=== PATIENT | male | born 1995 | race Caucasian/White ===

== ENCOUNTER 2022-08-01 18:52 | Emergency (ER) | payer OTHER, SELFPAY ==
[2022-08-01 18:59] VITALS: BP 120/78; PULSE 72; RESP 18; TEMP 36.7; O2SAT 97; BMI 32.7
--- NOTE | 2022-08-01 19:28 | ED.GENADULT ---
HPI - General Adult General Date Seen: 08/01/22 Chief complaint: Skin/Abscess/Foreign Body Stated complaint: L hand/thumb infection Time Seen by Provider: 08/01/22 18:54 Source: patient History of Present Illness HPI narrative: Patient is a 27-year-old male who presents for evaluation of a couple of problems on his left hand. About 5 days ago, he says he was at work and a drill with a fresh bit on it slipped and went into the webspace between his thumb and 1st finger on his left hand. He did not think much of it but over the past couple of days it has become increasingly painful and when the scab tore off today there was what he describes as ?boogers on it. There is increasing redness noted as well. He has not had significant swelling, denies any systemic complaints. He is certain that the drill bit was intact and has no concerns about retained foreign body. He also says that he got a tattoo on his left hand a few days ago. He has multiple tattoos and has never had any problems, however in this case, his skin has rejected the ink and he has some redness and irritation which perfectly mirrors the area where the ink was placed. He has been using antibiotic ointment on it multiple times a day since the tattoo was placed. He believes his tetanus is up-to-date. General health is good. Allergies to Cefzil. Related Data Allergies Allergy/AdvReac Type Severity Reaction Status Date / Time cefprozil [From Cefzil] Allergy Verified 08/01/22 18:59 Review of Systems Status of ROS: Reports: 10 or more systems reviewed and unremarkable except as noted in History and below PFSH PFS Social History Smoking Status: Former smoker What tobacco products do you use: cigarettes Smoking packs per day: 0 Smoking cigarettes per day: 0.0 Years smoked: 2 Smoking pack-years: 0.00 Smoking quit date/years: <= 15 years ago Do you use any of these nicotine containing products: E-Cigarettes and Vaping Products Second hand tobacco smoke exposure: No How often do you have a drink containing alcohol: 2-4 times a month How many standard drinks containing alcohol do you have on a typical day: 1 or 2 How often do you have six or more drinks on one occasion: Less than monthly AUDIT-C Alcohol total score: 3 Non-prescribed substance use: denies use service: No Exam Narrative: Exam Narrative: In general, an alert, nontoxic male. Head: Normocephalic, atraumatic. Neck: Supple. Extremities: Examination of the left hand shows a puncture wound in the 1st webspace. There is mild surrounding erythema, no active purulence although the eschar is yellowish in color. No fluctuance, some tenderness to palpation over the webspace. The tattoo in question is inflamed, the inflammation perfectly mirrors the shape of the tattoo. No surrounding inflammation or erythema. Neurologic: He is alert, conversant, gait normal. Affect: Normal. Skin: Warm and dry. Otherwise well perfused intact. Const: Vital Signs, click to edit/add: Vital Signs - 24 hr 08/01/22 18:59 Temperature 98.1 F Pulse Rate [Pulse Oximeter] 72 Respiratory Rate 18 Blood Pressure [Le ft Upper Arm] 120/78 Pulse Oximetry 97 Oxygen Delivery Me thod Room Air Documenting provider has reviewed patient's vital signs: yes Course Course Hospital Course: He does appear to be developing a little bit of mild infection from that puncture wound and I think antibiotics are reasonable. I do not think there is any indication for IV antibiotics at this time. With regard to that had 2, it looks more to me like this is a contact dermatitis than likely infection. I did recommend he discontinue the topical antibiotic and instead use something like Vaseline, use topical steroid, and then of course he will be on the oral antibiotic and that will cover there is any component of infection to this. If any of this worsens, if he has significant worsening redness, swelling, pain or new symptoms such as fever he should return for re-evaluation. Did discuss there may be slight worsening over the next 24 hours as the antibiotic kicks in. Vital Signs Vital signs: Initial Vital Signs Temperature 98.1 F 08/01/22 18:59 Temperature Source Temporal Artery Scan 08/01/22 18:59 Pulse Rate 72 08/01/22 18:59 Pulse Rhythm 08/01/22 18:59 Respiratory Rate 18 08/01/22 18:59 Blood Pressure 120/78 08/01/22 18:59 Blood Pressure Mean 92 08/01/22 18:59 Blood Pressure Position Sitting 08/01/22 18:59 Pulse Oximetry 97 08/01/22 18:59 Oxygen Delivery Method 08/01/22 18:59 Vital Signs Temperature 98.1 F 08/01/22 18:59 Pulse Rate 72 08/01/22 18:59 Respiratory Rate 18 08/01/22 18:59 Blood Pressure 120/78 08/01/22 18:59 Pulse Oximetry 97 08/01/22 18:59 Oxygen Delivery Method 08/01/22 18:59 Temperature 98.1 F 08/01/22 18:59 Pulse Rate 72 08/01/22 18:59 Respiratory Rate 18 08/01/22 18:59 Blood Pressure 120/78 08/01/22 18:59 Pulse Oximetry 97 08/01/22 18:59 Oxygen Delivery Method 08/01/22 18:59 Discharge Plan Discharge Clinical Impression: Cellulitis, Contact dermatitis Patient Disposition: Home, Self-Care Condition: Stable Instructions: Contact Dermatitis (DC), Cellulitis (ED) Additional Instructions: For the puncture wound, antibiotic as prescribed. For your tattoo, I would recommend discontinuing the topical antibiotic and using plain ointment such as Vaseline instead. You can use a topical steroid such as hydrocortisone. If you have significantly worsening redness, swelling, pain or new symptoms such as fever, return for re-evaluation. Stand Alone Forms: [facility] Info Instructions
[2022-08-01 19:34] VITALS: PULSE 76; RESP 16; TEMP 36.7; O2SAT 98
== END 2022-08-01 19:49 | disposition home or self-care (01) ==
LOC: ED 19:47
PROVIDERS: Emergency Provider Emergency Medicine
DX: L03.114 Cellulitis of left upper limb (principal); L24.89 Irritant contact dermatitis due to other agents
CPT/HCPCS: 99283

== ENCOUNTER 2023-05-21 09:31 | Emergency (ER) | payer OTHER, SELFPAY ==
[2023-05-21 10:00] VITALS: BP 146/70; PULSE 85; RESP 18; TEMP 36.7; O2SAT 97; BMI 34.5
--- NOTE | 2023-05-21 10:24 | CRLHL7_ITS ---
For Patients: As a result of the Century Cures Act, medical imaging exams and procedure reports are released immediately into your electronic medical record. You may view this report before your referring provider. If you have questions, please contact your health care provider. INDICATION: Right lower quadrant pain. TECHNIQUE: CT abdomen and pelvis acquired with 100 cc Isovue 370 IV contrast. COMPARISON: None. FINDINGS: Lower chest: Unremarkable. Liver: Moderate/severe fatty steatosis. No suspicious hepatic lesion. Gallbladder and bile ducts: Unremarkable. No stones or inflammation. No biliary dilatation. Pancreas: Unremarkable. No mass or inflammation. Spleen: Mild splenomegaly (15 centimeters AP dimension) Adrenal glands: Unremarkable. No nodules. Kidneys: Unremarkable. No suspicious masses, stones, or hydronephrosis. GI tract: Unremarkable. Normal in caliber. No sign of mass or inflammation. Normal appendix. Few colonic diverticula without evidence of acute diverticulitis. Vasculature: Abdominal aorta is normal in caliber. Mesenteric arteries are patent. Lymph nodes: No lymphadenopathy. Peritoneum/Abdominal Wall: Unremarkable. No sign of mass or infiltration. No free air or significant free fluid. Pelvis: Unremarkable. Bones: Unremarkable for age. IMPRESSION: 1. No acute inflammatory process in the abdomen or pelvis to explain the patient`s symptoms. Normal appendix. 2. Moderate/severe medic steatosis. 3. Mild splenomegaly. 4. Few colonic diverticula. Please note that all CT scans at this facility use dose modulation, iterative reconstruction, and/or weight-based dosing when appropriate to reduce radiation dose to as low as reasonably achievable. Dictated by Romain Wan MD @ 05/21/2023 11:54:14 AM (Electronically Signed)
--- NOTE | 2023-05-21 10:26 | ED_ITS ---
HPI - General Adult General Time Seen by Provider: 10:26 Date Seen: 05/21/23 Chief complaint: Abdominal Pain Stated complaint: Right side abdominal pain Time Seen by Provider: 05/21/23 09:34 Source: patient Mode of arrival: ambulatory Limitations: no limitations History of Present Illness HPI narrative: Patient is a 28 year white male who has a history of seizure disorder, has not had a seizure for last 5 years, is on Lamictal, presents with right lower abdominal pain over the last couple of days. He reports he ate at a friend's graduation and subsequently had some looser stool and belly pain it has progressed and now remained fairly constant in his right lower quadrant. He has had no rigors chills. He last ate yesterday, did not eat today. He has had no chest pain fevers or rigors. No dysuria frequency or hematuria. He reports looser stool, little bit more frequent but not continuous. Presents to ER for evaluation. He recently got out of crutches for a distal tibia fracture. He does architectural sheet metal. Related Data Home Medications Medication Instructions Recorded Confirmed lamotrigine 100 mg tablet 100 mg PO BID 05/21/23 05/21/23 lamotrigine 150 mg tablet 150 mg PO BID 05/21/23 05/21/23 Allergies Allergy/AdvReac Type Severity Reaction Status Date / Time cefprozil [From Cefzil] Allergy Verified 05/21/23 10:31 Review of Systems Status of ROS: Reports: 6 or more systems reviewed and unremarkable except as noted in History and below PFSH PFSH Social History Smoking Status: Former smoker What tobacco products do you use: cigarettes Smoking packs per day: 0 Smoking cigarettes per day: 0.0 Years smoked: 2 Smoking pack-years: 0.00 Smoking quit date/years: <= 15 years ago Do you use any of these nicotine containing products: E-Cigarettes and Vaping Products Second hand tobacco smoke exposure: No How often do you have a drink containing alcohol: 2-4 times a month How many standard drinks containing alcohol do you have on a typical day: 1 or 2 How often do you have six or more drinks on one occasion: Less than monthly AUDIT-C Alcohol total score: 3 Non-prescribed substance use: denies use service: No Exam Narrative: Exam Narrative: Objective: Vital signs unremarkable afebrile In general no apparent distress HEENT is unremarkable Pulses regular Chest clear Heart rhythm regular heart murmur Abdomen mild tenderness right lower quadrant, no obvious rebound or peritonitis. He does have some mild voluntary guarding. denies symptoms, no testicular pain Extremities are no edema, neurologic nonfocal Const: Vital Signs, click to edit/add: Vital Signs - 24 hr 05/21/23 10:00 Temperature 98.1 F Pulse Rate [Right Pulse Oximeter] 85 Respiratory Rate 18 Blood Pressure [Ri ght Upper Arm] 146/70 H Pulse Oximetry 97 Oxygen Delivery Me thod Room Air Course Vital Signs Vital signs: Initial Vital Signs Temperature 98.1 F 05/21/23 10:00 Temperature Source Temporal Artery Scan 05/21/23 10:00 Pulse Rate 85 05/21/23 10:00 Respiratory Rate 18 05/21/23 10:00 Blood Pressure 146/70 H 05/21/23 10:00 Blood Pressure Mean 95 05/21/23 10:00 Blood Pressure Position Sitting 05/21/23 10:00 Pulse Oximetry 97 05/21/23 10:00 Oxygen Delivery Method Room Air 05/21/23 10:00 Vital Signs Temperature 98.1 F 05/21/23 10:00 Pulse Rate 85 05/21/23 10:00 Respiratory Rate 18 05/21/23 10:00 Blood Pressure 146/70 H 05/21/23 10:00 Pulse Oximetry 97 05/21/23 10:00 Oxygen Delivery Method Room Air 05/21/23 10:00 Temperature 98.1 F 05/21/23 10:00 Pulse Rate 85 05/21/23 10:00 Respiratory Rate 18 05/21/23 10:00 Blood Pressure 146/70 H 05/21/23 10:00 Pulse Oximetry 97 05/21/23 10:00 Oxygen Delivery Method Room Air 05/21/23 10:00 Medical Decision Making MDM Narrative Medical decision making narrative: Patient is a 28 year white male with looser stool, right lower quadrant pain for the last several days. I think at this point we need to rule out appendicitis, intra-abdominal infection, colitis, will do CT scan with IV contrast of the abdomen pelvis, lab studies, IV fluid. Disposition pending findings above. He was comfortable plan Addendum: Patient's CT scan looks unremarkable other than hepatic steatosis, there is no evidence of an acute inflammatory change, normal appendix. At this point the patient's labs look reassuring as well would recommend observation, light diet, light activity, fluids, follow-up with primary care in 2-3 days, return to ED sooner problems concerns worsening thanks Lab Data Labs: Lab Results 05/21/23 05/21/23 Range/Units 10:55 11:45 WBC 5.60 (4.50-11.00) K/uL RBC 5.15 (4.30-5.90) m/uL Hgb 15.3 (13.5-17.5) gm/dL Hct 43.8 (37.0-53.0) % MCV 85 (80-100) fL MCH 30 (26-34) pg MCHC 35 (32-36) gm/dL RDW Coeff of Brayden 11.8 (11.5-15.5) % Plt Count 207 (140-440) K/uL Neut % (Auto) 65.7 (42.0-72.0) % Lymph % (Auto) 23.2 (20-44) % [place] % (Auto) 7.0 (0.0-11.0) % Eos % (Auto) 3.2 (0.0-7.0) % Baso % (Auto) 0.5 (0.0-3.0) % Neut # (Auto) 3.68 (1.7-7.0) K/uL Lymph # (Auto) 1.30 (0.90-2.90) K/uL [place] # (Auto) 0.40 (0.00-0.90) K/UL Eos # (Auto) 0.18 (0.00-0.50) K/uL Baso # (Auto) 0.03 (0.00-0.30) K/uL Sodium 139 (135-149) mmol/L Potassium 4.3 (3.6-5.1) mmol/L Chloride 104 (96-114) mmol/L Carbon Dioxide 22 (20-32) mmol/L BUN 18 (5-24) mg/dL Creatinine 0.9 (0.5-1.5) mg/dL Estimated Creat Clear 116.29 Estimated GFR 121 ml/min Glucose 92 (60-115) mg/dL Calcium 9.7 (8.4-10.6) mg/dL Total Bilirubin 0.8 (0.1-1.5) mg/dL Direct Bilirubin 0.2 (0.0-0.5) mg/dL AST 57 H (12-35) U/L ALT 106 H (4-50) U/L Alkaline Phosphatase 61 (40-150) U/L C-Reactive Protein 0.8 (0.5-1.0) mg/dL Total Protein 8.0 (6.0-8.3) g/dL Albumin 5.1 H (3.3-5.0) g/dL Urine Color Yellow (Yellow) Urine Appearance Clear (Clear) Urine pH 6.5 (5.0-8.5) Ur Specific [place] 1.010 (1.000-1.030) Urine Protein Negative (Negative) Urine Glucose (UA) Negative (Negative) Urine Ketones Negative (Negative) Urine Blood Negative (Negative) Urine Nitrite Negative (Negative) Urine Bilirubin Negative (Negative) Urine Urobilinogen 0.2 (0.2-1.0) Ur Leukocyte Esterase Negative (Negative) Urine RBC 0-2 (0-2) Urine WBC 0-2 (0-5) Ur Squamous Epith Cells None (None-Few) Urine Bacteria None (None) Discharge Plan Discharge Clinical Impression: Abdominal pain Patient Disposition: Home, Self-Care Condition: Stable Additional Instructions: Light diet, rest, fluids, Tylenol as needed, return to ED as needed for worsening, otherwise follow up with primary care in 2-3 days. Activity Level: Light activity Discharge Diet: Low Fat/Low Cholesterol Prescriptions: No Action lamotrigine 150 mg tablet 150 mg PO BID lamotrigine 100 mg tablet 100 mg PO BID Follow Up/Referrals: Provider,Not a Local [Primary Care Provider] - Stand Alone Forms: [facility] Info Instructions
[2023-05-21] MEDS: 0.9 % SODIUM CHLORIDE 1000 ml 1,000 ML 6000 ML IV (11:00)
[2023-05-21 11:06] LABS: Basophils Absolute Auto 0.03 K/uL (0.00-0.30); Basophils Percent Auto 0.5 % (0.0-3.0); Eosinophils Absolute Auto 0.18 K/uL (0.00-0.50); Eosinophils Percent Auto 3.2 % (0.0-7.0); Hematocrit 43.8 % (37.0-53.0); Hemoglobin* 15.3 gm/dL (13.5-17.5); Immature Granulocytes Abs Auto 0.02 K/uL (0.00-0.30); Immature Granulocytes Pct Auto 0.4 %; Lymphocytes Percent Auto 23.2 % (20-44); Mean Corpuscular HGB Conc 35 gm/dL (32-36); Mean Corpuscular Hemoglobin 30 pg (26-34); Mean Corpuscular Volume 85 fL (80-100); Neutrophils Absolute Auto 3.68 K/uL (1.7-7.0); Neutrophils Percent Auto 65.7 % (42.0-72.0); Platelet Count* 207 K/uL (140-440); RDW Coefficient of Variation % 11.8 % (11.5-15.5); Red Blood Count 5.15 m/uL (4.30-5.90)
[2023-05-21 11:13] LABS: Slide Review Reflex No
[2023-05-21 11:21] LABS: Albumin* 5.1 g/dL (3.3-5.0); Chloride* 104 mmol/L (96-114)
[2023-05-21 11:22] LABS: Potassium* 4.3 mmol/L (3.6-5.1); Sodium* 139 mmol/L (135-149)
[2023-05-21 11:24] LABS: Alkaline Phosphatase* 61 U/L (40-150); Aspartate Amino Transferase* 57 U/L (12-35); Bilirubin Direct* 0.2 mg/dL (0.0-0.5); Bilirubin Total* 0.8 mg/dL (0.1-1.5); Carbon Dioxide* 22 mmol/L (20-32); Creatinine* 0.9 mg/dL (0.5-1.5); Est. Creatinine Clearance* 116.29; Estimated Glomerular Filt Rate 121 ml/min
[2023-05-21 11:25] LABS: Alanine Aminotransferase* 106 U/L (4-50); Blood Urea Nitrogen* 18 mg/dL (5-24); Calcium* 9.7 mg/dL (8.4-10.6); Glucose* 92 mg/dL (60-115)
[2023-05-21 11:27] LABS: C Reactive Protein* 0.8 mg/dL (0.5-1.0)
[2023-05-21 12:01] LABS: Appearance Urine Clear (Clear); Bilirubin Urine Negative (Negative); Blood Urine Negative (Negative); Color Urine Yellow (Yellow); Glucose Urine Negative (Negative); Ketones Urine Negative (Negative); Leukocyte Esterase Urine Negative (Negative); Nitrite Urine Negative (Negative); Protein Urine Negative (Negative); Urobilinogen Urine 0.2 (0.2-1.0); pH Urine 6.5 (5.0-8.5)
[2023-05-21 12:08] LABS: RBC Urine 0-2 (0-2); WBC Urine 0-2 (0-5)
== END 2023-05-21 12:22 | disposition home or self-care (01) ==
PROVIDERS: Emergency Provider Family Medicine
DX: R10.9 Unspecified abdominal pain (principal)
CPT/HCPCS: 36415; 74177; 80048; 80076; 81001; 85025; 86140; 87086; 99284; 99285; J7030; Q9967

== ENCOUNTER 2023-12-31 18:07 | Emergency (ER) | payer OTHER, SELFPAY ==
[2023-12-31 19:06] VITALS: BP 144/85; PULSE 77; RESP 16; TEMP 36.9; O2SAT 98; BMI 34.5
--- NOTE | 2023-12-31 20:56 | ED.GENADULT ---
HPI - General Adult General Date Seen: 12/31/23 Chief complaint: Abdominal Pain Stated complaint: Abdominal issues Time Seen by Provider: 12/31/23 20:52 History of Present Illness HPI narrative: 28-year-old male with history of seizures (on lamotrigine) and a history of a tibial fracture that occurred last year. Set this tibia fracture he was laid up for several weeks at gait a lot of weight. He is now recovering for his tibia fracture in is in an effort to lose weight again get back in shape. He has been exercising more. Started a ?carnivore? diet about a week ago. Says that he is feels like he has been more irregular and possibly constipated. Also yesterday he noticed that the right side of his abdomen seemed to be generally a bit more prominent than the left side. He had not noticed that previously. He notes that he has already lost about 12 lb of weight over the past few weeks of exercise at diet. He talked to his family today who suggested he might have a hernia as a cause for the bulge in his right side. No other symptoms. He is not really having any abdominal pain. Thinking he might be constipated he took a stool softener today is had several loose stool since that. No nausea or vomiting. No fever chills. Urination has been normal. No rash. No known injury. Did have an episode of abdominal pain in April for which he was seen here in the ER. CT scan in that visit showed hepatic steatosis but no other abnormality. UA was normal. LFTs mildly abnormal with AST of 57, ALT 106. Bilirubin was 0.8. Alk-phos normal at 61. Kidney function was normal with BUN 18, creatinine 0.9. White count normal at 5.6. Hemoglobin 15.3. Related Data Home Medications Medication Instructions Recorded Confirmed lamotrigine 100 mg tablet 100 mg PO BID 05/21/23 12/31/23 lamotrigine 150 mg tablet 150 mg PO BID 05/21/23 12/31/23 Allergies Allergy/AdvReac Type Severity Reaction Status Date / Time cefprozil [From Cefzil] Allergy Verified 12/31/23 19:06 [facility] Medical History No significant past medical history Surgical History No significant past surgical history Social History Smoking Status: Former smoker What tobacco products do you use: cigarettes Smoking packs per day: 0 Smoking cigarettes per day: 0.0 Years smoked: 2 Smoking pack-years: 0.00 Smoking quit date/years: <= 15 years ago Do you use any of these nicotine containing products: E-Cigarettes and Vaping Products Second hand tobacco smoke exposure: No How often do you have a drink containing alcohol: 2-4 times a month How many standard drinks containing alcohol do you have on a typical day: 1 or 2 How often do you have six or more drinks on one occasion: Less than monthly AUDIT-C Alcohol total score: 3 Non-prescribed substance use: denies use service: No Exam Narrative: Exam Narrative: Constitutional: Appears well-developed and well-nourished. Alert. Conversant. Non toxic. HENT: Head: Atraumatic. Nose: Nose normal. Mouth/Throat: Oral mucosa is clear and moist. no trismus. Pharynx normal. Tonsils symmetric. No tonsillar enlargement, erythema, or exudate. Eyes: Conjunctivae normal. EOM normal. Pupils equal, round, and reactive to light. No scleral icterus. Neck: Normal range of motion. Neck supple. No tracheal deviation present. Cardiovascular: Normal rate, regular rhythm. No gallop. No friction rub. No murmur heard. Symmetric radial artery pulses Pulmonary/Chest: Effort normal. No stridor. No respiratory distress. No wheezes. No rales. No rhonchi . No tenderness. Abdominal: Soft. Bowel sounds normal. No distension. No mass. No HSM. Liver span add 10 cm. No splenomegaly. No tenderness. No rebound. No guarding. With the patient stands up and performs a Valsalva maneuver 7 does become more protuberant. No definite focal mass or asymmetry at this time Musculoskeletal: RUE: Normal range of motion. No tenderness. No deformity LUE: Normal range of motion. No tenderness. No deformity RLE: Normal range of motion. No edema. No tenderness. No deformity LLE: Normal range of motion. No edema. No tenderness. No deformity Neurological: Alert and oriented to person, place, and time. Normal strength. CN II-VII intact. No sensory deficit. GCS eye subscore is 4. GCS verbal subscore is 5. GCS motor subscore is 6. Normal coordination Skin: Skin is warm and dry. No rash noted. No pallor. Normal capillary refill. Psychiatric: Normal mood. Normal affect. Const: Vital Signs, click to edit/add: Vital Signs - 24 hr 12/31/23 19:06 12/31/23 22:13 12/31/23 22:14 Temperature 98.4 F 98.4 F 98.4 F Pulse Rate [Pulse Oximeter] 77 79 79 Respiratory Rate 16 16 16 Blood Pressure [Ri ght Upper Arm] 144/85 H 135/78 135/78 Pulse Oximetry 98 98 Oxygen Delivery Me thod Room Air Room Air Course Vital Signs Vital signs: Initial Vital Signs Temperature 98.4 F 12/31/23 19:06 Temperature Source Temporal Artery Scan 12/31/23 19:06 Pulse Rate 77 12/31/23 19:06 Respiratory Rate 16 12/31/23 19:06 Blood Pressure 144/85 H 12/31/23 19:06 Blood Pressure Mean 104 12/31/23 19:06 Blood Pressure Position Sitting 12/31/23 19:06 Pulse Oximetry 98 12/31/23 19:06 Oxygen Delivery Method Room Air 12/31/23 19:06 Vital Signs Temperature 98.4 F 12/31/23 19:06 Pulse Rate 77 12/31/23 19:06 Respiratory Rate 16 12/31/23 19:06 Blood Pressure 144/85 H 12/31/23 19:06 Pulse Oximetry 98 12/31/23 19:06 Oxygen Delivery Method Room Air 12/31/23 19:06 Temperature 98.4 F 12/31/23 22:14 Pulse Rate 79 12/31/23 22:14 Respiratory Rate 16 12/31/23 22:14 Blood Pressure 135/78 12/31/23 22:14 Pulse Oximetry 98 12/31/23 22:13 Oxygen Delivery Method Room Air 12/31/23 22:13 Medical Decision Making MDM Narrative Medical decision making narrative: This is a very pleasant 28-year-old male who came to the ER today because he felt like the right side of his abdomen is more protuberant than the left. He was also worried he might be constipated due to his recent Jaden more diet so took some stool softeners this afternoon as a result had loose stools. On my exam I do not detect any obvious organomegaly, hepatomegaly. Liver span is normal at 10 cm. There is no palpable inguinal or other hernia such as ventral, periumbilical, or any palpable external spigelian hernia. He is not actually having any tenderness on exam or any pain at this time. No symptoms suggest bowel obstruction. No sepsis cyst suggest kidney stone or UTI. No right upper quadrant pain to suggest hepatitis, biliary colic, cholecystitis. In review of his records I do city had mildly abnormal LFTs and stay a ptosis noted on his CT scan from last April. Suspect he probably has nonalcoholic fatty liver disease. At this point there is no evidence for any acute medical or surgical emergency occurred by by history of physical exam. I do not think he would benefit for repeat CT imaging due to the risk of repeat radiation at his young age. There is no evidence for any liver failure on clinical exam so would hold off on labs at this time. Reassurance provided we did is advised to plan for watchful waiting over the next 24-48 hours. Recommend that he discontinue the carnivore diet and stick to a more balanced diet with calorie restriction to lose weight. Recommend outpatient follow-up with primary care to have repeat LFT testing said monitor his nonalcoholic fatty liver disease. Also other health maintenance such as cholesterol checks given his Discharge Plan Discharge Clinical Impression: Constipation Patient Disposition: Home, Self-Care Condition: Stable Instructions: Constipation (DC) Additional Instructions: As we discussed, your abdominal exam is reassuring right now. I do not see any sign of appendicitis, hernia, tumor, or enlarged liver. I suspect that the bulging here noticing on the right side reflects your abdominal muscles and the presence of your liver on your right compared to the left. It is probably more noticeable now than it was before because of your recent weight loss. Keep going with her efforts to exercise and lose weight. You may want to think about finding a different diet. I suspect the carnivore diet that you have been on is probably affecting your bowel movement regularity. You do have fatty liver disease. We could see this on your labs from last April. It is important to keep an eye on that with periodic blood tests through your regular doctor's office. If he needed new primary care doctor. Call the [facility] at 5:07 a.m. [phone] schedule an appointment For a checkup. If you have any worsening abdominal pain, fever, jaundice or yellow skin, vomiting, bloody stools, please come back to the ER right away to be rechecked. Prescriptions: No Action lamotrigine 150 mg tablet 150 mg PO BID lamotrigine 100 mg tablet 100 mg PO BID Follow Up/Referrals: Provider,Not a Local [Primary Care Provider] - Stand Alone Forms: [facility] Info Instructions
[2023-12-31 22:13] VITALS: BP 135/78; PULSE 79; RESP 16; TEMP 36.9; O2SAT 98
[2023-12-31 22:14] VITALS: BP 135/78; PULSE 79; RESP 16; TEMP 36.9
== END 2023-12-31 22:14 | disposition home or self-care (01) ==
LOC: ED 21:28
PROVIDERS: Emergency Provider Emergency Medicine
DX: K59.00 Constipation, unspecified (principal)
CPT/HCPCS: 99282; 99283

== ENCOUNTER 2024-01-14 06:56 | Emergency (ER) | payer OTHER, SELFPAY ==
[2024-01-14 07:06] VITALS: BP 131/88; PULSE 78; RESP 18; TEMP 36.8; O2SAT 97; BMI 34.1
--- NOTE | 2024-01-14 07:43 | CT_ITS ---
Final Report Patient: FRANNIE GASPAR Facility:?[facility] Patient ID:?[id number] Site Patient ID:?[id number] Site :?1997 Study:?CT Abdomen/Pelvis W/ 107CC ISOVUE 370-01/14/2024 8:29:18 AM Ordering Physician:MOHSEN Final Report: INDICATION: Right-sided abdominal pain. Possible colitis COMPARISON: None TECHNIQUE: CT examination of the abdomen and pelvis was performed following the uneventful intravenous administration of 107 cc of Isovue 370. Thin section axial images were obtained from the lung bases through the pubic symphysis. Oral contrast was not administered. Please note that all CT scans at this facility use dose modulation, iterative reconstruction, and/or weight-based dosing when appropriate to reduce radiation dose to as low as reasonably achievable. FINDINGS: LUNG BASES: The lung bases as visualized appear normal.The heart size is normal at the lung bases. LIVER/BILIARY SYSTEM:The liver is normal in size and configuration. There is no focal mass and there is no intra- or extra hepatic biliary ductal dilatation.Contracted but otherwise unremarkable appearing gallbladder ADRENALS: Normal KIDNEYS, URETERS and BLADDER:The kidneys appear normal. No visible mass, calculus or hydronephrosis. The ureters and bladder as visualized appear normal. SPLEEN:Normal appearance. PANCREAS: Appears normal. RETROPERITONEUM and MESENTERY: There is no mass, adenopathy or aortic aneurysm. GASTROINTESTINAL SYSTEM: There is no evidence of diverticulitis, colitis, mechanical obstruction, or appendicitis. The small bowel as visualized appears normal.The appendix is well seen and appears normal. There is no evidence of colitis as questioned clinically. PELVIS: No mass, adenopathy or free fluid. OSSEOUS STRUCTURES and ABDOMINAL WALL: There is an age-appropriate appearance of the osseous structures.No significant abdominal wall defect. OTHER: No free fluid or free air. IMPRESSION: No visible cause for pain. Please note that all CT scans at this facility use dose modulation, iterative reconstruction, and/or weight-based dosing when appropriate to reduce radiation dose to as low as reasonably achievable. Dictated by Jose De Jesus Alvarado MD @ 01/14/2024 8:35:40 AM (Electronic Signature)
--- NOTE | 2024-01-14 07:48 | ED.GENADULT ---
HPI - General Adult General Chief complaint: Abdominal Pain <Libby Taylor MD - Last Filed: 01/17/24 23:58> Stated complaint: blood in stool <Libby Taylor MD - Last Filed: 01/17/24 23:58> Time Seen by Provider: 01/14/24 07:20 <Libby Taylor MD - Last Filed: 01/17/24 23:58> Source: patient <Libby Taylor MD - Last Filed: 01/17/24 23:58> Mode of arrival: ambulatory <Libby Taylor MD - Last Filed: 01/17/24 23:58> Limitations: no limitations <Libby Taylor MD - Last Filed: 01/17/24 23:58> History of Present Illness HPI narrative: 28-year-old male presents the emergency department for evaluation of right-sided abdominal pain that started at about 7:00 p.m. last night, 12 hours prior to arrival. Pain achy in nature, somewhat intermittent. Pain started after a loose bowel movement. Had several subsequent bowel movements that were bright red bloody in nature. He was able to sleep through most of the night but then when he got up this morning, he went to check to see if he was still bleeding in bear down and was able to produce a little bit more bright red blood. Shortly after that he had another loose bowel movement that was actually mostly stool but then finished with blood again. No rectal pain, no trauma or injury. Does not take any anticoagulants. No prior history of similar symptoms. No previous colonoscopy. No family history of colitis, inflammatory bowel disease, colon cancers. Patient had a CT performed 8 months ago that is reviewed. He had some diverticula but no other signs of significant abnormality at that time. He has not been running any fevers, no dysuria, no history of kidney stones. He did not try taking any medication to help with his symptoms. He is more concerned about the bleeding then the pain, pain is not severe. No weight loss, no excessive alcohol intake. Past medical history benign per his report. No major long-term health problems. Surgically, he has had ear tubes in the past. No long-term medications. Allergy to Cefzil. Nonsmoker. ROS is notable for the abdominal pain and rectal bleeding as above, otherwise denies times 12 systems. <Libby Taylor MD - Last Filed: 01/17/24 23:58> Related Data Home medications: Home Medications Medication Instructions Recorded Confirmed lamotrigine 100 mg tablet 100 mg PO BID 05/21/23 12/31/23 lamotrigine 150 mg tablet 150 mg PO BID 05/21/23 12/31/23 <Libby Taylor MD - Last Filed: 01/17/24 23:58> Allergies/adverse reactions: Allergies Allergy/AdvReac Type Severity Reaction Status Date / Time cefprozil [From Cefzil] Allergy Verified 01/14/24 08:24 <Libby Taylor MD - Last Filed: 01/17/24 23:58> [facility] Medical History: Medical History No significant past medical history <Libby Taylor MD - Last Filed: 01/17/24 23:58> Surgical History: Surgical History No significant past surgical history <Libby Taylor MD - Last Filed: 01/17/24 23:58> Social History: Social History Smoking Status: Former smoker What tobacco products do you use: cigarettes Smoking packs per day: 0 Smoking cigarettes per day: 0.0 Years smoked: 2 Smoking pack-years: 0.00 Smoking quit date/years: <= 15 years ago Do you use any of these nicotine containing products: E-Cigarettes and Vaping Products Second hand tobacco smoke exposure: No How often do you have a drink containing alcohol: 2-4 times a month How many standard drinks containing alcohol do you have on a typical day: 1 or 2 How often do you have six or more drinks on one occasion: Less than monthly AUDIT-C Alcohol total score: 3 Non-prescribed substance use: denies use service: No <Libby Taylor MD - Last Filed: 01/17/24 23:58> Exam Const: Vital Signs, click to edit/add: Vital Signs - 24 hr 01/14/24 07:06 01/14/24 09:12 Temperature 98.3 F Pulse Rate [Pulse Oximeter] 78 61 Respiratory Rate 18 16 Blood Pressure [Ri ght Upper Arm] 131/88 118/61 Pulse Oximetry 97 96 Oxygen Delivery Me thod Room Air Room Air <Libby Taylor MD - Last Filed: 01/17/24 23:58> Vital Signs, click to edit/add: Vital Signs - 24 hr 01/14/24 07:06 01/14/24 09:12 Temperature 98.3 F Pulse Rate [Pulse Oximeter] 78 61 Respiratory Rate 18 16 Blood Pressure [Ri ght Upper Arm] 131/88 118/61 Pulse Oximetry 97 96 Oxygen Delivery Me thod Room Air Room Air <Jessica Boss MD - Last Filed: 01/14/24 10:34> Documenting provider has reviewed patient's vital signs: yes <Libby Taylor MD - Last Filed: 01/17/24 23:58> Common normals: no apparent distress and alert <Libby Taylor MD - Last Filed: 01/17/24 23:58> General appearance: cooperative, comfortable and well kempt <Libby Taylor MD - Last Filed: 01/17/24 23:58> Other: No pallor, answers questions appropriately. <Libby Taylor MD - Last Filed: 01/17/24 23:58> HENMT: Common normals: normocephalic <Libby Taylor MD - Last Filed: 01/17/24 23:58> Head and scalp: normocephalic <Libby Taylor MD - Last Filed: 01/17/24 23:58> Face and sinus: normal facial exam <Libby Taylor MD - Last Filed: 01/17/24 23:58> Mouth: oral and palatal mucosa normal <Libby Taylor MD - Last Filed: 01/17/24 23:58> Throat: posterior oropharynx normal <Libby Taylor MD - Last Filed: 01/17/24 23:58> Eye: Common normals: conjunctivae normal <Libby Taylor MD - Last Filed: 01/17/24 23:58> General eye: normal appearance of both eyes <MD Jaki Mi Last Filed: 01/17/24 23:58> Conjunctiva: conjunctiva(e) normal <MD Jaki Mi Last Filed: 01/17/24 23:58> Neck & C-Spine: Common normals: no lymphadenopathy <MD Jaki Mi Last Filed: 01/17/24 23:58> General: normal visual inspection <MD Jaki Mi Last Filed: 01/17/24 23:58> Resp: Common normals: normal respiratory effort, no use of accessory muscles and clear to auscultation bilaterally <MD Jaki Mi Last Filed: 01/17/24 23:58> Effort & inspection: able to speak in complete sentences <MD Jaki Mi Last Filed: 01/17/24 23:58> Auscultation: clear to auscultation bilaterally <MD Jaki Mi Last Filed: 01/17/24 23:58> Cardio: Common normals: regular rate, regular rhythm, S1 normal heart sound, S2 normal heart sound and no murmurs <Libby Taylor MD - Last Filed: 01/17/24 23:58> Rate: regular rate <MD Jaki Mi Last Filed: 01/17/24 23:58> Rhythm: regular rhythm <MD Jaki Mi Last Filed: 01/17/24 23:58> Heart sounds: S1 normal and S2 normal <MD Jaki Mi Last Filed: 01/17/24 23:58> GI: Other: Abdomen is nondistended. Normal external appearance. Bowel sounds are slightly hyperactive on the right side but not high-pitched or obstructive sounding. He is mildly diffusely tender all along the right ascending colon area localizes a little bit more in the right lower quadrant than the right upper. No left-sided abdominal pain. There is a little bit of fullness in the right lower quadrant but I would not necessarily say that it feels like a mass. No obvious mass, rebound tenderness or guarding. <Libby Taylor MD - Last Filed: 01/17/24 23:58> : Common normals: no CVA tenderness <Libby Taylor MD - Last Filed: 01/17/24 23:58> Bladder/kidney exam: no CVA tenderness <Libby Taylor MD - Last Filed: 01/17/24 23:58> Other: Rectal exam showing normal appearing external tissues. Normal rectal tone. Mucosa examined with anoscope. There are no obvious signs of acute bleeding. I did collect a sample which does look as though it may be tented with blood but no active bleeding. No obvious mass, polyps or ulcerations. Mucosa does appear a little diffusely inflamed but not overwhelming. <Libby Taylor MD - Last Filed: 01/17/24 23:58> Back & Pelvis: Common normals: no CVA tenderness <Libby Taylor MD - Last Filed: 01/17/24 23:58> Lumbar spine/lower back: normal to inspection <Libby Taylor MD - Last Filed: 01/17/24 23:58> Extremity: Common normals: normal to inspection, normal capillary refill and no pedal edema <Libby Taylor MD - Last Filed: 01/17/24 23:58> Neuro: Sensorium/orientation: alert <Libby Taylor MD - Last Filed: 01/17/24 23:58> Speech: speech normal <Libby Taylor MD - Last Filed: 01/17/24 23:58> Motor exam: no movement abnormalities noted <Libby Taylor MD - Last Filed: 01/17/24 23:58> Psych: Appearance: well kempt <Libby Taylor MD - Last Filed: 01/17/24 23:58> Attitude: engaged <Libby Taylor MD - Last Filed: 01/17/24 23:58> Activity/motor behavior: appropriate eye contact <Libby Taylor MD - Last Filed: 01/17/24 23:58> Insight: insight good <Libby Taylor MD - Last Filed: 01/17/24 23:58> Judgement: judgment good <Libby Taylor MD - Last Filed: 01/17/24 23:58> Skin: Common normals: no rashes or lesions noted <Libby Taylor MD - Last Filed: 01/17/24 23:58> General skin exam: no rashes or lesions noted <Libby Taylor MD - Last Filed: 01/17/24 23:58> Course Course ED Course: Differential diagnosis includes appendicitis, more likely colitis, cannot exclude diverticular bleed, inflammatory bowel disease, volvulus, obstruction, AVM or other intra-abdominal pathology. I do think that he would benefit from CT scan since he is having pain associated with this, and the pain is right-sided. IV will be placed. Basic labs. 1 L of normal saline while we await findings. He has declined pain medicine for now, I let him know that if he changes his mind to alert the nursing team. Await findings. Will be handing over care to oncoming day shift partner. <Libby Taylor MD - Last Filed: 01/17/24 23:58> Reevaluation(s) Time of Reevaluation #1: 10:30 <Jessica Boss MD - Last Filed: 01/14/24 10:34> Reevaluation #1: Have reviewed normal hemoglobin, normal CT findings with patient. He has had no further stooling or production of blood while here. We discussed a clear liquid diet for 24-48 hours, outpatient follow-up to get scheduled for colonoscopy in 6-8 weeks. He is in agreement. We have discussed signs and symptoms for worsening that he should return here or seek evaluation more emergently. He does understand we do not for the most part do any emergent scopes here. <Jessica Boss MD - Last Filed: 01/14/24 10:34> Vital Signs Vital signs: Initial Vital Signs Temperature 98.3 F 01/14/24 07:06 Temperature Source Temporal Artery Scan 01/14/24 07:06 Pulse Rate 78 01/14/24 07:06 Pulse Rhythm Regular 01/14/24 07:06 Respiratory Rate 18 01/14/24 07:06 Blood Pressure 131/88 01/14/24 07:06 Blood Pressure Mean 102 01/14/24 07:06 Blood Pressure Position Supine 01/14/24 07:06 Pulse Oximetry 97 01/14/24 07:06 Oxygen Delivery Method Room Air 01/14/24 07:06 Vital Signs Temperature 98.3 F 01/14/24 07:06 Pulse Rate 78 01/14/24 07:06 Respiratory Rate 18 01/14/24 07:06 Blood Pressure 131/88 01/14/24 07:06 Pulse Oximetry 97 01/14/24 07:06 Oxygen Delivery Method Room Air 01/14/24 07:06 Temperature 98.3 F 01/14/24 07:06 Pulse Rate 61 01/14/24 09:12 Respiratory Rate 16 01/14/24 09:12 Blood Pressure 118/61 01/14/24 09:12 Pulse Oximetry 96 01/14/24 09:12 Oxygen Delivery Method Room Air 01/14/24 09:12 <Libby Taylor MD - Last Filed: 01/17/24 23:58> Initial Vital Signs Temperature 98.3 F 01/14/24 07:06 Temperature Source Temporal Artery Scan 01/14/24 07:06 Pulse Rate 78 01/14/24 07:06 Pulse Rhythm Regular 01/14/24 07:06 Respiratory Rate 18 01/14/24 07:06 Blood Pressure 131/88 01/14/24 07:06 Blood Pressure Mean 102 01/14/24 07:06 Blood Pressure Position Supine 01/14/24 07:06 Pulse Oximetry 97 01/14/24 07:06 Oxygen Delivery Method Room Air 01/14/24 07:06 Vital Signs Temperature 98.3 F 01/14/24 07:06 Pulse Rate 78 01/14/24 07:06 Respiratory Rate 18 01/14/24 07:06 Blood Pressure 131/88 01/14/24 07:06 Pulse Oximetry 97 01/14/24 07:06 Oxygen Delivery Method Room Air 01/14/24 07:06 Temperature 98.3 F 01/14/24 07:06 Pulse Rate 61 01/14/24 09:12 Respiratory Rate 16 01/14/24 09:12 Blood Pressure 118/61 01/14/24 09:12 Pulse Oximetry 96 01/14/24 09:12 Oxygen Delivery Method Room Air 01/14/24 09:12 <Jessica Boss MD - Last Filed: 01/14/24 10:34> Medications Administered Medications: Discontinued Medications Generic Name Dose Route Start Last Admin Trade Name Freq PRN Reason Stop Dose Admin Sodium Chloride 1,000 mls @ 1,000 mls/hr 01/14/24 07:44 01/14/24 09:25 0.9 % Sodium Chloride 1000 Ml IV 01/14/24 08:43 Infused .Q1H ADEEL Infusion <Libby Taylor MD - Last Filed: 01/17/24 23:58> Discontinued Medications Generic Name Dose Route Start Last Admin Trade Name Freq PRN Reason Stop Dose Admin Sodium Chloride 1,000 mls @ 1,000 mls/hr 01/14/24 07:44 01/14/24 09:25 0.9 % Sodium Chloride 1000 Ml IV 01/14/24 08:43 Infused .Q1H ADEEL Infusion <Jessica Boss MD - Last Filed: 01/14/24 10:34> Medical Decision Making Lab Data Lab results reviewed: Yes I reviewed the patient's lab results <Jessica Boss MD - Last Filed: 01/14/24 10:34> Labs: Lab Results 01/14/24 01/14/24 Range/Units 07:43 07:55 WBC 6.01 (4.50-11.00) K/uL RBC 5.15 (4.30-5.90) m/uL Hgb 15.3 (13.5-17.5) gm/dL Hct 44.1 (37.0-53.0) % MCV 86 (80-100) fL MCH 30 (26-34) pg MCHC 35 (32-36) gm/dL RDW Coeff of Brayden 11.8 (11.5-15.5) % Plt Count 243 (140-440) K/uL Neut % (Auto) 65.2 (42.0-72.0) % Lymph % (Auto) 21.8 (20-44) % [place] % (Auto) 7.5 (0.0-11.0) % Eos % (Auto) 5.0 (0.0-7.0) % Baso % (Auto) 0.3 (0.0-3.0) % Neut # (Auto) 3.92 (1.7-7.0) K/uL Lymph # (Auto) 1.31 (0.90-2.90) K/uL [place] # (Auto) 0.50 (0.00-0.90) K/UL Eos # (Auto) 0.30 (0.00-0.50) K/uL Baso # (Auto) 0.02 (0.00-0.30) K/uL Abs Immat Gran (auto) 0.01 (0.00-0.30) K/uL Imm/Tot Granulo (auto) 0.2 % Sodium 140 (135-149) mmol/L Potassium 4.0 (3.6-5.1) mmol/L Chloride 107 (96-114) mmol/L Carbon Dioxide 20 (20-32) mmol/L Anion Gap 13 (7-15) mEq/L BUN 21 (5-24) mg/dL Creatinine 0.9 (0.5-1.5) mg/dL Estimated Creat Clear 116.29 Estimated GFR 121 ml/min Glucose 102 (60-115) mg/dL Lactate 0.8 (0.5-1.9) mmol/L Calcium 9.9 (8.4-10.6) mg/dL Total Bilirubin 0.5 (0.1-1.5) mg/dL AST 56 H (12-35) U/L ALT 85 H (4-50) U/L Alkaline Phosphatase 76 (40-150) U/L C-Reactive Protein < 0.5 L (0.5-1.0) mg/dL Total Protein 8.3 (6.0-8.3) g/dL Albumin 5.1 H (3.3-5.0) g/dL Lipase 153 (23-300) U/L Stool Occult Blood Positive (Negative) <Libby Taylor MD - Last Filed: 01/17/24 23:58> Lab Results 01/14/24 01/14/24 Range/Units 07:43 07:55 WBC 6.01 (4.50-11.00) K/uL RBC 5.15 (4.30-5.90) m/uL Hgb 15.3 (13.5-17.5) gm/dL Hct 44.1 (37.0-53.0) % MCV 86 (80-100) fL MCH 30 (26-34) pg MCHC 35 (32-36) gm/dL RDW Coeff of Brayden 11.8 (11.5-15.5) % Plt Count 243 (140-440) K/uL Neut % (Auto) 65.2 (42.0-72.0) % Lymph % (Auto) 21.8 (20-44) % [place] % (Auto) 7.5 (0.0-11.0) % Eos % (Auto) 5.0 (0.0-7.0) % Baso % (Auto) 0.3 (0.0-3.0) % Neut # (Auto) 3.92 (1.7-7.0) K/uL Lymph # (Auto) 1.31 (0.90-2.90) K/uL [place] # (Auto) 0.50 (0.00-0.90) K/UL Eos # (Auto) 0.30 (0.00-0.50) K/uL Baso # (Auto) 0.02 (0.00-0.30) K/uL Abs Immat Gran (auto) 0.01 (0.00-0.30) K/uL Imm/Tot Granulo (auto) 0.2 % Sodium 140 (135-149) mmol/L Potassium 4.0 (3.6-5.1) mmol/L Chloride 107 (96-114) mmol/L Carbon Dioxide 20 (20-32) mmol/L Anion Gap 13 (7-15) mEq/L BUN 21 (5-24) mg/dL Creatinine 0.9 (0.5-1.5) mg/dL Estimated Creat Clear 116.29 Estimated GFR 121 ml/min Glucose 102 (60-115) mg/dL Lactate 0.8 (0.5-1.9) mmol/L Calcium 9.9 (8.4-10.6) mg/dL Total Bilirubin 0.5 (0.1-1.5) mg/dL AST 56 H (12-35) U/L ALT 85 H (4-50) U/L Alkaline Phosphatase 76 (40-150) U/L C-Reactive Protein < 0.5 L (0.5-1.0) mg/dL Total Protein 8.3 (6.0-8.3) g/dL Albumin 5.1 H (3.3-5.0) g/dL Lipase 153 (23-300) U/L Stool Occult Blood Positive (Negative) <Jessica Boss MD - Last Filed: 01/14/24 10:34> Imaging Data CT scan - abdomen: Attestation: I have reviewed the pertinent imaging results. <Jessica Boss MD - Last Filed: 01/14/24 10:34> Radiologist's impression: Patient: FRANNIE GASPAR Facility:?[facility] Patient ID:?[id number] Site Patient ID:?[id number] Site :?1995 Study:?CT Abdomen/Pelvis W/ 107CC ISOVUE 370-01/14/2024 8:29:18 AM Ordering Physician:MOHSEN Final Report: INDICATION: Right-sided abdominal pain. Possible colitis COMPARISON: None TECHNIQUE: CT examination of the abdomen and pelvis was performed following the uneventful intravenous administration of 107 cc of Isovue 370. Thin section axial images were obtained from the lung bases through the pubic symphysis. Oral contrast was not administered. Please note that all CT scans at this facility use dose modulation, iterative reconstruction, and/or weight-based dosing when appropriate to reduce radiation dose to as low as reasonably achievable. FINDINGS: LUNG BASES: The lung bases as visualized appear normal.The heart size is normal at the lung bases. LIVER/BILIARY SYSTEM:The liver is normal in size and configuration. There is no focal mass and there is no intra- or extra hepatic biliary ductal dilatation.Contracted but otherwise unremarkable appearing gallbladder ADRENALS: Normal KIDNEYS, URETERS and BLADDER:The kidneys appear normal. No visible mass, calculus or hydronephrosis. The ureters and bladder as visualized appear normal. SPLEEN:Normal appearance. PANCREAS: Appears normal. RETROPERITONEUM and MESENTERY: There is no mass, adenopathy or aortic aneurysm. GASTROINTESTINAL SYSTEM: There is no evidence of diverticulitis, colitis, mechanical obstruction, or appendicitis. The small bowel as visualized appears normal.The appendix is well seen and appears normal. There is no evidence of colitis as questioned clinically. PELVIS: No mass, adenopathy or free fluid. OSSEOUS STRUCTURES and ABDOMINAL WALL: There is an age-appropriate appearance of the osseous structures.No significant abdominal wall defect. OTHER: No free fluid or free air. IMPRESSION: No visible cause for pain. Please note that all CT scans at this facility use dose modulation, iterative reconstruction, and/or weight-based dosing when appropriate to reduce radiation dose to as low as reasonably achievable. Dictated by Jose De Jesus Alvarado MD @ 01/14/2024 8:35:40 AM (Electronic Signature) <Jessica Boss MD - Last Filed: 01/14/24 10:34> Discharge Plan Discharge Clinical Impression: BRBPR (bright red blood per rectum) <Libby Taylor MD - Last Filed: 01/17/24 23:58> Patient Disposition: Home, Self-Care <Libby Taylor MD - Last Filed: 01/17/24 23:58> Condition: Stable <Libby Taylor MD - Last Filed: 01/17/24 23:58> Instructions: Gastrointestinal Bleeding (ED), Rectal Bleeding (ED), Clear Liquid Diet (ED) <Libby Taylor MD - Last Filed: 01/17/24 23:58> Additional Instructions: Recommend clear liquid diet for 24-48 hours. Need to follow up in clinic in get scheduled for an outpatient colonoscopy in 6-8 weeks time. If you develop increasing abdominal pain, if you develop any vomiting or fevers with your current symptoms, if you have increased in rectal bleeding, do need to be re-evaluated emergently. If you have no further bleeding and are tolerating the clear liquid diet, can increase your diet back to normal. <Libby Taylor MD - Last Filed: 01/17/24 23:58> Activity Level: Activity as Tolerated <Libby Taylor MD - Last Filed: 01/17/24 23:58> Activity as Tolerated <Jessica Boss MD - Last Filed: 01/14/24 10:34> Prescriptions: No Action lamotrigine 150 mg tablet 150 mg PO BID lamotrigine 100 mg tablet 100 mg PO BID <Libby Taylor MD - Last Filed: 01/17/24 23:58> Follow Up/Referrals: Provider,Not a Local [Primary Care Provider] - <Libby Taylor MD - Last Filed: 01/17/24 23:58> Stand Alone Forms: MyHealth Info Instructions <Libby Taylor MD - Last Filed: 01/17/24 23:58>
[2024-01-14 08:03] LABS: Lactate* 0.8 mmol/L (0.5-1.9)
[2024-01-14 08:04] LABS: Basophils Absolute Auto 0.02 K/uL (0.00-0.30); Basophils Percent Auto 0.3 % (0.0-3.0); Hematocrit 44.1 % (37.0-53.0); Hemoglobin* 15.3 gm/dL (13.5-17.5); Immature Granulocytes Abs Auto 0.01 K/uL (0.00-0.30); Immature Granulocytes Pct Auto 0.2 %; Lymphocytes Absolute Auto 1.31 K/uL (0.90-2.90); Lymphocytes Percent Auto 21.8 % (20-44); Mean Corpuscular HGB Conc 35 gm/dL (32-36); Mean Corpuscular Hemoglobin 30 pg (26-34); Mean Corpuscular Volume 86 fL (80-100); Monocytes Percent Auto 7.5 % (0.0-11.0); Neutrophils Absolute Auto 3.92 K/uL (1.7-7.0); Neutrophils Percent Auto 65.2 % (42.0-72.0); Platelet Count* 243 K/uL (140-440); RDW Coefficient of Variation % 11.8 % (11.5-15.5); Red Blood Count 5.15 m/uL (4.30-5.90); White Blood Count* 6.01 K/uL (4.50-11.00)
[2024-01-14 08:09] LABS: Slide Review Reflex No
[2024-01-14 08:11] LABS: Fecal Occult Blood* Positive (Negative)
[2024-01-14 08:18] LABS: Albumin* 5.1 g/dL (3.3-5.0); Chloride* 107 mmol/L (96-114)
[2024-01-14 08:19] LABS: Sodium* 140 mmol/L (135-149)
[2024-01-14 08:21] LABS: Bilirubin Total* 0.5 mg/dL (0.1-1.5); Creatinine* 0.9 mg/dL (0.5-1.5); Est. Creatinine Clearance* 116.29; Estimated Glomerular Filt Rate 121 ml/min
[2024-01-14] MEDS: 0.9 % SODIUM CHLORIDE 1000 ml 1,000 ML IV (08:21)
[2024-01-14 08:22] LABS: Alanine Aminotransferase* 85 U/L (4-50); Alkaline Phosphatase* 76 U/L (40-150); Anion Gap 13 mEq/L (7-15); Aspartate Amino Transferase* 56 U/L (12-35); Blood Urea Nitrogen* 21 mg/dL (5-24); Carbon Dioxide* 20 mmol/L (20-32); Glucose* 102 mg/dL (60-115); Lipase* 153 U/L (23-300); Total Protein* 8.3 g/dL (6.0-8.3)
[2024-01-14 08:23] LABS: Calcium* 9.9 mg/dL (8.4-10.6)
[2024-01-14 08:25] LABS: C Reactive Protein* < 0.5 mg/dL (0.5-1.0)
[2024-01-14 09:12] VITALS: BP 118/61; PULSE 61; RESP 16; O2SAT 96
== END 2024-01-14 10:40 | disposition home or self-care (01) ==
PROVIDERS: Emergency Provider Family Medicine
DX: K62.5 Hemorrhage of anus and rectum (principal)
CPT/HCPCS: 36415; 74177; 80053; 82270; 83605; 83690; 85025; 86140; 99284; J7030; Q9967

== ENCOUNTER 2025-08-16 08:05 | Emergency (ER) | payer OTHER, SELFPAY ==
[2025-08-16 08:08] VITALS: BP 126/86; PULSE 82; RESP 16; TEMP 36.4; O2SAT 99; BMI 36.8
--- OUTSIDE RECORDS SUMMARY | 2025-08-16 08:08 | XMS_ITS | Clinical Summary ---
Author Organization [facility] Address [address] [place] [address] Care Team Providers Care Bailiff Name Role Phone Pcp, No Primary Care Provider Unavailabl e Allergies Active Allergy Reactions Criticality Noted Date Comments Cefprozil 08/14/2010 Medications lamoTRIgine (LAMICTAL) 150 mg tablet Take 250 mg by mouth two times daily. 12/01/2022 Active lamoTRIgine 100 mg tablet 08/30/2024 Active Active Problems Problem Noted Date Diagnosed Date Epilepsy, grand mal 07/04/2015 Immunizations Immunization Administration Dates Next Due DTP 1997,1997,1997 DTaP 02/26/2002,10/04/1998 HIB PRP-T (ActHIB,Hiberix) 07/03/1998 HPV 9 (Gardasil 9) 07/30/2023 Hepatitis B, Unspecified 1997,1997,0 1997 Hib Conjugate, Unspecified 1997,1997 ,1997 Inactivated Polio Vaccine 02/26/2002 Influenza, IIV4 07/30/2023 MMR 02/26/2002,07/03/1998 Oral Polio Vaccine 1997,1997, 997 Tdap 04/30/2017,10/25/2009,07/06/2009 Varicella Vaccine 07/06/2009,04/20/1999 Family History Medical History Relation Name Comments Good Health Brother Good Health Father Seizures Maternal Grandmother Epileps y Good Health Mother Cancer-colon No Family History Cancer-prostate No Family History Relation Name Status Comments Brother Father Maternal Grandmother Mother Social History Tobacco Use Types Packs/Day Years Used Date Smoking Tobacco: Former Cigarettes Smokeless Tobacco: Never Tobacco Cessation:Counseling Given: Not Answered Alcohol Use Standard Drinks/Week Comments Yes 0 (1 standard drink = 0.6 oz pur e alcohol) occasionally Sex and Gender Information Value Date Recorded Sex Assigned at Not on file 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 Gender Identity Not on file Sexual Orientation Not on file Occupation Industry Job Start Date Job End Date [email or web address] Not on file Not on file Not on file Obstetrics History Last Filed Vital Signs Vital Sign Reading Time Taken Comments Blood Pressure 116/80 09/06/2024 1:03 PM CDT Pulse 76 09/06/2024 1:03 PM CDT Temperature 36.8 C (98.2 F) 01/13/2023 10:06 AM STATIONARY EQUIPMENT MECHANIC Respiratory Rate 18 07/30/2023 10:58 AM CDT Oxygen Saturation 97% 07/30/2023 10:58 AM CDT Inhaled Oxygen Concentration - - Weight 93.1 kg (205 lb 3.2 oz) 09/06/2024 1:03 P M CDT Height 172.7 cm (5' 8) 09/06/2024 1:03 PM CDT Body Mass Index 31.2 09/06/2024 1:03 PM CDT Plan of Treatment Health Maintenance Due Date Last Done Comments Depression screening for age 12+ 2009 HPV series for age 9-45 (2 - Male 3-dose series) 08/27/2023 07/30/2023 COVID-19 vaccine series () 07/25/2025 Influenza Vaccine (#1) 2025 07/30/2023 BMI (ht and wt on same day) for age 18+ 09/06/2025 09/06/2024, 06/14/2017, 04/10/2017 Tetanus booster 04/30/2027 04/30/2017, 10/25/2009, 07/06/2009 RSV vaccine for adults or (1 - 1-dose 75+ series) 2072 Hepatitis B series for 19+ Completed 10/24, 1997, 1997 HIV for age 15-65 Completed 07/30/2023 Hepatitis C screening for ag e 18-79 Completed 07/30/2023 Pneumococcal series for age 6-49 Aged Out No longer eligible b ased on patient's age to complete this topic Procedures Procedure Name Priority Date/Time Associated Diagnosis Comments ANTI HIV 1/2 Routine 07/30/2023 11:33 AM CDT Screening for HIV (human immunodeficiency virus) ANTI HCV Routine 07/30/2023 11:33 AM CDT Need for hepatitis C screening test from Last 3 Months or Most Recently Relevant to Health Maintenance Results * ANTI HCV (07/30/2023 11:33 AM CDT) HEPATITIS C ANTIBODY Non-Reacti ve Non-React kelly 07/30/2023 10:50 PM CDT [facility] Comment:Please note, per www .CDC.gov: If a patient is known to be at high risk of HCV infection, or is symptomatic, and the physician's suspicion of HCV infection is high, HCV RNA testing is often employed and is of diagnostic value, even after an initial negative anti-HCV test result. Blood BLOOD SPECIMEN / Unknown Venipuncture / Unknown 07/30/2023 11:33 AM CDT 07/30/2023 11:33 AM CDT Adeline BURROUGHS SEND OUTS Final Result [facility] SENDOUT [place] [address] [address] [address] [place] [address] * ANTI HIV 1/2 [16458.0] (07/30/2023 11:33 AM CDT) HIV-1/HIV-2 SCREEN Non-Reacti ve Non-Reacti ve 07/30/2023 7:58 PM CDT [facility] Comment:HIV-1 p24 and HIV-1/ HIV-2 Ab Not Detected. Blood BLOOD SPECIMEN / Unknown Venipuncture / Unknown 07/30/2023 11:33 AM CDT 07/30/2023 11:33 AM CDT us Adeline BURROUGHS S[employer] OUT[employer] Final Result [facility] [address] [place] [address], from Last 3 Months or Most Recently Relevant to Health Maintenance Insurance [employer] * Guarantor: [employer] Account Type Relation to Patient Date of Phone Billing Address [facility] Employer 11/24/[address] [facility] [place] [address] Care Teams Bailiff Relationship Specialty Start Date End Date Pcp, No . PCP - General 04/30/21
--- NOTE | 2025-08-16 08:22 | ED_ITS ---
HPI - General Adult General Date Seen: 08/16/25 Chief complaint: Abdominal Pain Stated complaint: dizzy,nausea Time Seen by Provider: 08/16/25 08:22 History of Present Illness HPI narrative: 30 yo M with history of seizure disorder presenting to the ER this morning for abdominal pain. Per medical record he does have previous visits ER for abdominal pain in December 2023 (no clear cause for pain, possible constipation) in April of 2023 (CT negative for appendicitis, did have hepatic steatosis). His seizure disorders very well controlled. He has not had a seizure in more than 6 years. He has been sick since Friday about 2 days ago with abdominal pain that started generalized more midline but has been more and more prominent on the right side. He feels it most in the right lower quadrant. It is ?consistent? pain and does not really get better or worse. Nothing clearly makes it better or makes it worse. He has been mildly nauseous but not vomiting. Stools have been a mix of constipation and somewhat liquidy. No bloody stool. Urination has been normal. He has felt feverish and a little bit lightheaded at home but did not have a measured fever here in the ER. No flank pain. No known injury. No known sick contacts. Related Data Home Medications ?Medication ?Instructions ?Recorded ?Confirmed lamotrigine 100 mg tablet 100 mg PO BID 05/21/2308/16 lamotrigine 150 mg tablet 150 mg PO BID 05/21/2308/16 Allergies Allergy/AdvReac Type Severity Reaction Status Date / Time cefprozil (From Cefzil) Allergy Verified 01/14/24 08:24 [facility] Medical History No significant past medical history Surgical History No significant past surgical history Social History Smoking Status: Former smoker What tobacco products do you use: cigarettes Smoking packs per day: 0 Smoking cigarettes per day: 0.0 Years smoked: 2 Smoking pack-years: 0.00 Smoking quit date/years: <= 15 years ago Do you use any of these nicotine containing products: E-Cigarettes and Vaping Products Second hand tobacco smoke exposure: No How often do you have a drink containing alcohol: 2-4 times a month How many standard drinks containing alcohol do you have on a typical day: 1 or 2 How often do you have six or more drinks on one occasion: Less than monthly AUDIT-C Alcohol total score: 3 Non-prescribed substance use: denies use service: No Exam Narrative: Exam Narrative: Constitutional: Appears well-developed and well-nourished. Alert. Conversant. Non toxic. HENT: Head: Atraumatic. Nose: Nose normal. Mouth/Throat: Oral mucosa is clear and moist. no trismus. Pharynx normal. To nsils symmetric. No tonsillar enlargement, erythema, or exudate. Eyes: Conjunctivae normal. EOM normal. Pupils equal, round, and reactive to light. No scleral icterus. Neck: Normal range of motion. Neck supple. No tracheal deviation present. Cardiovascular: Normal rate, regular rhythm. No gallop. No friction rub. No murmur heard. Symmetric radial artery pulses Pulmonary/Chest: Effort normal. No stridor. No respiratory distress. No wheezes. No rales. No rhonchi . No tenderness. Abdominal: Soft. Bowel sounds normal. No distension. No mass. Mild diffuse tenderness with maximal tenderness in the right lower quadrant. No rebound. No guarding. No CVA tenderness. No inguinal tenderness or mass. Musculoskeletal: RUE: Normal range of motion. No tenderness. No deformity LUE: Normal range of motion. No tenderness. No deformity RLE: Normal range of motion. No edema. No tenderness. No deformity LLE: Normal range of motion. No edema. No tenderness. No deformity Neurological: Alert and oriented to person, place, and time. Normal strength. CN II-VII intact. No sensory deficit. GCS eye subscore is 4. GCS verbal subscore is 5. GCS motor subscore is 6. Normal coordination Skin: Skin is warm and dry. No rash noted. No pallor. Normal capillary refill. Psychiatric: Normal mood. Normal affect. Const: Vital Signs, click to edit/add: Vital Signs - 24 hr 08/16/25 08:08 08/16/25 10:15 Temperature 97.6 F Pulse Rate [Pulse Oximeter] 82 75 Respiratory Rate 16 16 Blood Pressure [Ri ght Upper Arm] 126/86 125/82 Pulse Oximetry 99 99 Oxygen Delivery Me thod Room Air Room Air Course Course ED Course: recheck: Doing well. No worsening abdominal pain, vomiting, or other symptoms. Discussed laboratory workup and CT imaging. Patient comfortable with plan to discharge carefully monitor at home. Vital Signs Vital signs: Initial Vital Signs Temperature 97.6 F 08/16/25 08:08 Temperature Source Temporal Artery Scan 08/16/25 08:08 Pulse Rate 82 08/16/25 08:08 Respiratory Rate 16 08/16/25 08:08 Blood Pressure 126/86 08/16/25 08:08 Blood Pressure Mean 99 08/16/25 08:08 Blood Pressure Position Sitting 08/16/25 08:08 Pulse Oximetry 99 08/16/25 08:08 Oxygen Delivery Method Room Air 08/16/25 08:08 Vital Signs Temperature 97.6 F 08/16/25 08:08 Pulse Rate 82 08/16/25 08:08 Respiratory Rate 16 08/16/25 08:08 Blood Pressure 126/86 08/16/25 08:08 Pulse Oximetry 99 08/16/25 08:08 Oxygen Delivery Method Room Air 08/16/25 08:08 Temperature 97.6 F 08/16/25 08:08 Pulse Rate 75 08/16/25 10:15 Respiratory Rate 16 08/16/25 10:15 Blood Pressure 125/82 08/16/25 10:15 Pulse Oximetry 99 08/16/25 10:15 Oxygen Delivery Method Room Air 08/16/25 10:15 Medications Administered Medications: Discontinued Medications Generic Name Dose Route Start Last Admin Trade Name Freq PRN Reason Stop Dose Admin Sodium Chloride 1,000 mls @ 1,000 mls/hr 08/16/25 08:45 08/16/25 10:04 0.9 % Sodium Chloride 1000 Ml IV 08/16/25 09:44 Infused .Q1H ADEEL Infusion Ketorolac Tromethamine 15 mg 08/16/25 08:33 08/16/25 09:08 Ketorolac 15 Mg/Ml Inj IVP 08/16/25 08:34 15 mg ONCE ONE Administration Ondansetron HCl 4 mg 08/16/25 08:33 08/16/25 09:07 Ondansetron 2 Mg/Ml Inj IVP 08/16/25 08:34 4 mg ONCE ONE Administration Medical Decision Making MDM Narrative Medical decision making narrative: Presented to the Emergency Department with a 2-3 day history of abdominal pain, nausea,. The differential diagnosis of abdominal pain includes: Appendicitis, Bowel Obstruction, Ulcer, Ischemia, Cholecystitis, Diverticulitis, Pancreatitis, UTI, kidney stone, Enteritis/Colitis, amongst many other etiologies. Laboratory testing does not reveal a cause for the patient's pain. LFTs are mildly abnormal, slightly higher than last time. Suspect this is likely related to nonalcoholic fatty liver disease. Patient denies any history of heavy alcohol use. Counseled the need for close outpatient follow-up with PCP for liver monitoring as well as dietary and lifestyle modification. Discussed the potential link between NAFLD and cardiovascular disease. CT imaging shows steatosis, but otherwise is noted to be normal. The exact etiology of the abdominal pain is not clear at this time. No life threatening cause or need for emergent surgery or hospital admission is detected today. The patient was advised that if symptoms do not completely resolve within another 24-48 hours re-evaluation with primary care or return to the ED is indicated. The patient also understands that if they worsen, they should return to the ER right away. I discussed the uncertainty about the diagnosis and answered the patient's questions. Abdominal pain return precautions discussed. Lab Data Labs: Lab Results 08/16/25 08/16/25 Range/Units 08:48 10:10 WBC 5.50 (4.50-11.00) K/uL RBC 4.80 (4.30-5.90) m/uL Hgb 14.5 (13.5-17.5) gm/dL Hct 41.6 (37.0-53.0) % MCV 87 (80-100) fL MCH 30 (26-34) pg MCHC 35 (32-36) gm/dL RDW Coeff of Brayden 11.7 (11.5-15.5) % Plt Count 196 (140-440) K/uL Neut % (Auto) 61.4 (42.0-72.0) % Lymph % (Auto) 25.8 (20-44) % Socorro % (Auto) 8.9 (0.0-11.0) % Eos % (Auto) 3.3 (0.0-7.0) % Baso % (Auto) 0.4 (0.0-3.0) % Neut # (Auto) 3.38 (1.7-7.0) K/uL Lymph # (Auto) 1.42 (0.90-2.90) K/uL Socorro # (Auto) 0.50 (0.00-0.90) K/UL Eos # (Auto) 0.18 (0.00-0.50) K/uL Baso # (Auto) 0.02 (0.00-0.30) K/uL Abs Immat Gran (auto) 0.01 (0.00-0.30) K/uL Imm/Tot Granulo (auto) 0.2 % Sodium 138 (135-149) mmol/L Potassium 4.6 (3.6-5.1) mmol/L Chloride 104 (96-114) mmol/L Carbon Dioxide 27 (20-32) mmol/L Anion Gap 7 (7-15) mEq/L BUN 17 (5-24) mg/dL Creatinine 0.9 (0.5-1.5) mg/dL Estimated Creat Clear 114.25 Estimated GFR 119 ml/min Glucose 104 (60-115) mg/dL Calcium 9.3 (8.4-10.6) mg/dL Total Bilirubin 0.5 (0.1-1.5) mg/dL AST 78 H (12-35) U/L ALT 163 H (4-50) U/L Alkaline Phosphatase 65 (40-150) U/L Total Protein 7.4 (6.0-8.3) g/dL Albumin 4.7 (3.3-5.0) g/dL Lipase 90 (23-300) U/L Urine Color Yellow (Yellow) Urine Appearance Clear (Clear) Urine pH 7.0 (5.0-8.5) Ur Specific [employer] 1.015 (1.000-1.030) Urine Protein Negative (Negative) Urine Glucose (UA) Negative (Negative) Urine Ketones Negative (Negative) Urine Blood Negative (Negative) Urine Nitrite Negative (Negative) Urine Bilirubin Negative (Negative) Urine Urobilinogen 0.2 (0.2-1.0) Ur Leukocyte Esterase Negative (Negative) Urine RBC 0-2 (0-2) Urine WBC 0-2 (0-5) Ur Squamous Epith Cells None (None-Few) Urine Bacteria None (None) Imaging Data CT scan - abdomen: Attestation: I have reviewed the pertinent imaging results. Radiologist's impression: IMPRESSION: 1. No dilated loops of large or small intestine. Normal appendix. 2. Moderate hepatic steatosis. 3. Small right paracentral protrusion L4-5. Discharge Plan Discharge Clinical Impression: Abdominal pain, Abnormal LFTs (liver function tests), Fatty liver Patient Disposition: Home, Self-Care Condition: Stable Instructions: Non-Alcoholic Fatty Liver Disease (ED), Abdominal Pain (ED) Additional Instructions: So far, your workup looks reassuring. No signs of appendicitis or other serious cause of your abdominal pain. However I want you to monitor your symptoms carefully and if your getting worse, come back to the ER right away. If her symptoms are not improving within the next 24-48 hours, recheck with the ER. Your liver function blood tests are mildly abnormal today. Please recheck with your regular doctor within 1-2 weeks to have your liver function rechecked. Your regular doctor can help you to help you set up a plan to follow up and monitor for your liver function. Prescriptions: No Action lamotrigine 150 mg tablet 150 mg PO BID lamotrigine 100 mg tablet 100 mg PO BID Follow Up/Referrals: Provider,Not a Local [Primary Care Provider, Family Practice] Stand Alone Forms: [employer] Info Instructions
--- NOTE | 2025-08-16 08:34 | CRLHL7_ITS ---
For Patients: As a result of the Century Cures Act, medical imaging exams and procedure reports are released immediately into your electronic medical record. You may view this report before your referring provider. If you have questions, please contact your health care provider. INDICATION: Abdominal pain migratory to the right lower quadrant TECHNIQUE: Axial images were obtained from the diaphragm to the pubic symphysis. Reformats were obtained in the coronal and sagittal plane. IV Contrast: 116 cc Isovue 370 Oral Contrast: None COMPARISON: None. FINDINGS: Lower chest: Unremarkable. Liver: Normal in contour with diffusely decreased density. Gallbladder and bile ducts: Unremarkable. No stones or inflammation. No biliary dilatation. Spleen: Unremarkable. Normal in size without mass. Pancreas: Unremarkable. No mass or inflammation. Adrenal glands: Unremarkable. No nodules. Kidneys: Unremarkable. No masses, stones, or hydronephrosis. Vasculature: Abdominal aorta is normal in caliber. Subcentimeter retroperitoneal lymph nodes. GI tract: The stomach is unremarkable. No dilated loops of large or small intestine. Normal appendix. Pelvis: Unremarkable. Bones: Mild degenerative disc disease L4-5 with small right paracentral protrusion (2, 88). IMPRESSION: 1. No dilated loops of large or small intestine. Normal appendix. 2. Moderate hepatic steatosis. 3. Small right paracentral protrusion L4-5. Please note that all CT scans at this facility use dose modulation, iterative reconstruction, and/or weight-based dosing when appropriate to reduce radiation dose to as low as reasonably achievable. Dictated by Raudel Nunez MD @ 08/16/2025 9:09:14 AM (Electronically Signed)
[2025-08-16 08:57] LABS: Hematocrit* 41.6 % (37.0-53.0); Hemoglobin* 14.5 gm/dL (13.5-17.5); Immature Granulocytes Abs Auto 0.01 K/uL (0.00-0.30); Immature Granulocytes Pct Auto 0.2 %; Lymphocytes Absolute Auto 1.42 K/uL (0.90-2.90); Mean Corpuscular HGB Conc 35 gm/dL (32-36); Mean Corpuscular Hemoglobin 30 pg (26-34); Mean Corpuscular Volume 87 fL (80-100); RDW Coefficient of Variation % 11.7 % (11.5-15.5); Red Blood Count* 4.80 m/uL (4.30-5.90); White Blood Count* 5.50 K/uL (4.50-11.00)
[2025-08-16 08:58] LABS: Slide Review Reflex No
[2025-08-16] MEDS: ONDANSETRON 2 MG/ML inj 4 MG IVP (09:07)
[2025-08-16 09:10] LABS: Albumin* 4.7 g/dL (3.3-5.0); Chloride* 104 mmol/L (96-114); Potassium* 4.6 mmol/L (3.6-5.1); Sodium* 138 mmol/L (135-149)
[2025-08-16 09:12] LABS: Blood Urea Nitrogen* 17 mg/dL (5-24); Creatinine* 0.9 mg/dL (0.5-1.5); Est. Creatinine Clearance* 114.25; Estimated Glomerular Filt Rate 119 ml/min
[2025-08-16 09:13] LABS: Alanine Aminotransferase* 163 U/L (4-50); Alkaline Phosphatase* 65 U/L (40-150); Anion Gap 7 mEq/L (7-15); Aspartate Amino Transferase* 78 U/L (12-35); Bilirubin Total* 0.5 mg/dL (0.1-1.5); Calcium* 9.3 mg/dL (8.4-10.6); Carbon Dioxide* 27 mmol/L (20-32); Glucose* 104 mg/dL (60-115); Total Protein* 7.4 g/dL (6.0-8.3)
[2025-08-16 10:15] VITALS: BP 125/82; PULSE 75; RESP 16; O2SAT 99
[2025-08-16 10:30] LABS: Appearance Urine Clear (Clear)
== END 2025-08-16 11:27 | disposition home or self-care (01) ==
PROVIDERS: Emergency Provider Emergency Medicine
DX: R10.9 Unspecified abdominal pain (principal); R94.5 Abnormal results of liver function studies; K76.0 Fatty (change of) liver, not elsewhere classified
CPT/HCPCS: 36415; 74177; 80053; 81001; 81025; 83690; 85025; 96374; 96375; 99283; 99284; J1885; J2405; J7030; Q9967

== ENCOUNTER 2025-11-18 13:46 | Emergency (ER) | payer OTHER, SELFPAY ==
--- OUTSIDE RECORDS SUMMARY | 2025-11-18 12:40 | XMS_ITS | Encounter Summary ---
Author Organization [facility] Address [address] [place] [address] Care Team Providers Care Classification Officer Name Role Phone Unassigned, Provider Primary Care Provider Unava ilable Reason for Visit * ReasonCommentsCough Encounter Details DateTypeDepartmentCare Team (Latest Contact Info)Zqdiyhqgcmm44/26/2025 12:40 PM CSTOffice Visit [place] [facility] [address] [place] [address] Annelise Schmitz PA-C [address] [place] [address] Chest pain, unspecified type; Shortness of breath; Sore throat Social History Tobacco UseTypesPacks/DayYears UsedDateSmoking Tobacco: NeverSmokeless Tobacco: Current Tobacco Cessation:Ready to Q uit: Not Asked; Counseling Given: Not Answered Sex and Gender InformationValueDate RecordedSex Assigned at BirthNot on file Legal SzySjps66/10/2012 7:06 AM CDTGender IdentityNot on fileSexual Orientation Not on filedocumented as of this encounter Last Filed Vital Signs Vital SignReadingTime TakenCommentsBlood Ctwnhaoe180/8411/18/2025 12:29 PM ELECTRIC CUTTER OPERATOR Vjcvz966411/18/2025 12:29 PM LCSVzbmalrvlda02.3 ??C (99.1 ??F)11/18/2025 12:29 PM CSTRespiratory Loys009101/19/2025 12:29 PM CSTOxygen Jirirxcxvd572%11/18/2025 12:29 PM CSTInhaled Oxygen Concentration--Weight--Height--Body Mass Index-- documented in this encounter Patient Instructions * Patient Instructions* Annelise Schmitz PA-C - 11/18/2025 12:40 PM ELECTRIC CUTTER OPERATOR [facility] go to [facility] at this time for more comprehensive workup and cardiac rule out. TRIC CUTTER OPERATOR documented in this encounter Nursing Notes * Kimmy Marte RN - 11/18/2025 12:40 PM CST Cough with swollen throat and chest congestion for the past few days. Has not measured any fevers. TRIC CUTTER OPERATOR documented in this encounter Plan of Treatment Not on file documented as of this encounter Procedures Procedure NamePriorityDate/TimeAssociated DiagnosisCommentsECG 12 LEAD JQXAMHNNKARHFD45/26/2025 12:52 PM ELECTRIC CUTTER OPERATOR Chest pain, unspecified type documented in this encounter Results * ECG 12-LEAD ROUTINE (Non Lab to perform-Today)-STAT (11/18/2025 12:52 PM ELECTRIC CUTTER OPERATOR) ComponentValueRef RangeTest MethodAnalysis TimePerformed AtPathologist SignatureVentricular Zcxi01ROXUFVU GHPAtrial Ldjo44QSMHEQD GHPP-R Yafowvep653 msMUSE GHPQRS Fpeqoxht754smFGHJ BUPJV613baJUPY RBWJPI570hsITZP GHPP Axis47 degreesMUSE GHPR Wqcu31nlpjgedNZPK GHPT Akgb97xjzctrtLZKW GHPSpecimen (Source) Anatomical Location / LateralityCollection Method / VolumeCollection Time Received Time11/18/2025 12:52 PM ELECTRIC CUTTER OPERATOR Narrative [facility] - 11/18/2025 1:08 PM ELECTRIC CUTTER OPERATOR Sinus rhythm Normal ECG No previous ECGs available Confirmed by Kendrick Hassan ([id number]) on 11/18/2025 1:08:12 PM Procedure Note Kendrick Hassan MD - 11/18/2025 Sinus rhythm Normal ECG No previous ECGs available Confirmed by Kendrick Hassan ([id number]) on 11/18/2025 1:08:12 PM Authorizing ProviderResult TypeResult StatusMonica Le PA-CPN ECG ORDERABLESFinal ResultPerforming OrganizationAddressCity/State/ZIP CodePhone Number [facility] [address] [place] [address] documented in this encounter Visit Diagnoses Diagnosis Chest pain, unspecified type Shortness of breath Sore throat Acute pharyngitis documented in this encounter Care Teams Team MemberRelationshipSpecialtyStart DateEnd Date Unassigned, Provider [address] [place] [address] PCP - Wszvulj60/27/00documented as of this encounter
--- OUTSIDE RECORDS SUMMARY | 2025-11-18 13:47 | XMS_ITS | Clinical Summary ---
Author Organization [facility] Address [address] [place] [address] Care Team Providers Care Order Tracer Name Role Phone Unassigned, Provider Primary Care Provider Unava ilable Source Comments You are receiving this document as you are listed as the primary care provider,follow-up provider, or the patient has been referred to you for consultation.This is in compliance with the Medicare andMedicaid EHR Incentive Program,which states Providers who transition their patient to another setting of careor provider of care or refers their patient to another provider of care shouldprovide summary care record for each transition of care or referral. [facility] Allergies Active AllergyReactionsCriticalityNoted DateCommentsCefprozilHivesMedium 10/25/2011 Medications MedicationSigDispense QuantityRefillsLast FilledStart DateEnd DateStatus lamoTRIgine (LAMICTAL) 100 MG tablet Take 1 Tablet (100 mg) by mouth two times a day.5Active lamoTRIgine (LAMICTAL) 150 MG tablet Take 1 Tablet (150 mg) by mouth two times a day.5Active Active Problems No known active problems Encounters DateTypeDepartmentCare LxhaEfnbjmcgrgq01/26/2025 12:40 PM CSTOffice Visit [place] [address] [facility] [address] [place] [address] Annelise Schmitz PA-C Chest pain, unspecified type; Shortness of breath; Sore throatfrom Last 3 Months Immunizations ImmunizationAdministration DatesNext DueTDAP (BOOSTRIX)10/25/2009 Social History Tobacco UseTypesPacks/DayYears UsedDateSmoking Tobacco: NeverSmokeless Tobacco: Current Tobacco Cessation:Ready to Q uit: Not Asked; Counseling Given: Not Answered Sex and Gender InformationValueDate RecordedSex Assigned at BirthNot on file Legal HbwZlpx72/10/2012 7:06 AM CDTGender IdentityNot on fileSexual Orientation Not on file Last Filed Vital Signs Vital SignReadingTime TakenCommentsBlood Xyjmluel751/8411/18/2025 12:29 PM CHEFS Honjg983311/18/2025 12:29 PM HBYWdhfgubsikr47.3 ??C (99.1 ??F)11/18/2025 12:29 PM CSTRespiratory Umlz634501/19/2025 12:29 PM CSTOxygen Tlzwahjrfa722%11/18/2025 12:29 PM CSTInhaled Oxygen Concentration--Fjmreh43.2 kg (190 lb)10/25/2011 2:04 PM CSTHeight--Body Mass Index-- Plan of Treatment Health MaintenanceDue DateLast DoneCommentsHep C Screening (Preventive Services) 1997Adult Preventive Visit2015HepB Vaccine (1)2016HPV Vaccine (2 - Male 3-dose series)/3COVID-19 Vaccine (1 - season)2025Influenza Vaccine (#1)509/3DTaP/Tdap/Td Vaccine (9 - Tdap)/05/2017, 10/25/2009, 07/06/2009, Additional history existsZoster/Shingles Vaccine (1 of 2)2047Hib OlgpmbnVzeykpnfq51/10/1998, 1997, 1997, Additional history existsIPV (Polio) VaccineCompleted 02/26/2002, 1997, 1997, Additional history existsHIV Screening (Preventive Services)Dlhzotnfg19/06/2023HepA VaccineAged OutNo longer eligible based on patient's age to complete this topicMCV4 VaccineAged OutNo longer eligible based on patient's age to complete this topicMeningococcal B Vaccine Aged OutNo longer eligible based on patient's age to complete this topic Pneumococcal VaccineAged OutNo longer eligible based on patient's age to complete this topic Procedures Procedure NamePriorityDate/TimeAssociated DiagnosisCommentsECG 12 LEAD YLKQXMZPEVVUYU15/26/2025 12:52 PM CHEFS Chest pain, unspecified type from Last 3 Months Results * ECG 12-LEAD ROUTINE (Non Lab to perform-Today)-STAT (11/18/2025 12:52 PM CHEFS) ComponentValueRef RangeTest MethodAnalysis TimePerformed AtPathologist SignatureVentricular Uxjm78JASPVNA GHPAtrial Jiei38POFRXLL GHPP-R Nkevepjb157 msMUSE GHPQRS Gtwckgiz215ovSAAJ JMYIM178orJSZG FGZACV647luKFDK GHPP Axis47 degreesMUSE GHPR Ynho11bnwtipgKFLP GHPT Ydsb55kicgriyKPON GHPSpecimen (Source) Anatomical Location / LateralityCollection Method / VolumeCollection Time Received Time11/18/2025 12:52 PM CHEFS Narrative MUSE GHP - 11/18/2025 1:08 PM CHEFS Sinus rhythm Normal ECG No previous ECGs available Confirmed by Kendrick Hassan ([id number]) on 11/18/2025 1:08:12 PM Procedure Note Kendrick Hassan MD - 11/18/2025 Sinus rhythm Normal ECG No previous ECGs available Confirmed by Kendrick Hassan ([id number]) on 11/18/2025 1:08:12 PM Authorizing ProviderResult TypeResult StatusMonica Le PA-CPN ECG ORDERABLESFinal ResultPerforming OrganizationAddressCity/State/ZIP CodePhone Number [facility] [address] [place] [address] from Last 3 Months Insurance * Guarantor: Savi Gaspar RAccount TypeRelation to PatientDate of PhoneBilling AddressPersonal/Lioluz3203/06/1978 [address] [place] [address] Care Teams Team MemberRelationshipSpecialtyStart DateEnd Date Unassigned, Provider [address] [place] [address] PCP - Hoxyxjq02/27/00
--- OUTSIDE RECORDS SUMMARY | 2025-11-18 13:47 | XMS_ITS | Clinical Summary ---
Author Organization [facility] Address [address] [place] [address] Care Team Providers Care Mutuel Cashier Name Role Phone Pcp, No Primary Care Provider Unavailabl e Allergies Active AllergyReactionsCriticalityNoted RbbgIzngdkaqMkffjtbxn89/21/2010 Medications MedicationSigDispense QuantityRefillsLast FilledStart DateEnd DateStatus lamoTRIgine (LAMICTAL) 150 mg tablet Take 250 mg by mouth two times daily.3Active lamoTRIgine 100 mg tablet 4Active Active Problems ProblemNoted DateDiagnosed DateEpilepsy, grand mal07/04/2015 Immunizations ImmunizationAdministration DatesNext SrhNZI8112/25/1996,1997,1997DTaP 02/26/2002,10/04/1998HIB PRP-T (ActHIB,Hiberix)07/03/1998HPV 9 (Gardasil 9) 07/30/2023Hepatitis B, Brtlctgnpol1997,1997,1997Hib Conjugate, Wcayehdohae1997,1997,1997Inactivated Polio Tpacwsi0302/26/2002 Influenza, LSC510/04/20230431EGS8402/26/2002,07/03/1998Oral Polio Fsakqkn6510/24/1997, 1997,1997Tdap04/30/2017,10/25/2009,07/06/2009Varicella Vaccine 07/06/2009,04/20/1999 Family History Medical HistoryRelationNameCommentsGood HealthBrotherGood HealthFatherSeizures Maternal GrandmotherEpilepsyGood HealthMotherCancer-colonNo Family History Cancer-prostateNo Family HistoryRelationNameStatusCommentsBrotherFatherMaternal GrandmotherMother Social History Tobacco UseTypesPacks/DayYears UsedDateSmoking Tobacco: FormerCigarettes Smokeless Tobacco: Never Tobacco Cessation:Counseling Given: Not Answered Alcohol UseStandard Drinks/WeekCommentsYes0 (1 standard drink = 0.6 oz pure alcohol)occasionallySex and Gender InformationValueDate RecordedSex Assigned at BirthNot on fileLegal ErgIvle9912/07/2012 5:40 AM CSTGender IdentityNot on file Sexual OrientationNot on fileOccupationIndustryJob Start DateJob End Date Architectural Sheet Metal CompanyNot on fileNot on fileNot on file Last Filed Vital Signs Vital SignReadingTime TakenCommentsBlood Zcpewwbu908/8010 1:03 PM CDT Funtb7898 1:03 PM ZLDCunwvuycyqv11.8 ??C (98.2 ??F)01/13/2023 10:06 AM CSTRespiratory Krje3780 10:58 AM CDTOxygen Slvxbvabiz81%07/30/2023 10:58 AM CDTInhaled Oxygen Concentration--Cgezwq67.1 kg (205 lb 3.2 oz)09/06/2024 1:03 PM QUIWguzrj503.7 cm (5' 8)09/06/2024 1:03 PM CDTBody Mass Index31.210 1:03 PM CDT Plan of Treatment Health MaintenanceDue DateLast DoneCommentsDepression screening for age 12+ 2009HPV series for age 9-45 (2 - Male 3-dose series)/04/2023 COVID-19 vaccine series ( season)2025Influenza Vaccine (#1) MI (ht and wt on same day) for age 18+, 06/14/2017, 04/10/2017Tetanus , 10/25/2009, 07/06/2009Hepatitis B series for 19+Uafqqafzb1997, 1997, 1997 HIV for age 15-69Euozethsw28/06/2023Hepatitis C screening for age 18-79Completed 07/30/2023neumococcal series for age 6-49Aged OutNo longer eligible based on patient's age to complete this topic Procedures Procedure NamePriorityDate/TimeAssociated DiagnosisCommentsANTI HIV 1/2Routine 07/30/2023 11:33 AM CDT Screening for HIV (human immunodeficiency virus) ANTI FSYHibfvgt06/06/2023 11:33 AM CDT Need for hepatitis C screening test from Last 3 Months or Most Recently Relevant to Health Maintenance Results * ANTI HCV (07/30/2023 11:33 AM CDT)ComponentValueRef RangeTest MethodAnalysis TimePerformed AtPathologist SignatureHEPATITIS C ANTIBODYNon-Reactive Non-Vhlklhqj61/06/2023 10:50 PM CDTUNITED [facility] LABORATORYComment:Please note, per www.CDC.gov: If a patient is known to be at high risk of HCV infection, or is symptomatic, and the physician's suspicion of HCV infection is high, HCV RNA testing is often employed and is of diagnostic value, even after an initial negative anti-HCV test result.Specimen (Source)Anatomical Location / LateralityCollection Method / VolumeCollection TimeReceived Time BloodBLOOD SPECIMEN / UnknownVenipuncture / Pfikdby4307/30/2023 11:33 AM CDT 07/30/2023 11:33 AM CDT Narrative Authorizing ProviderResult TypeResult StatusMackendean Kathy [facility] Final ResultPerforming OrganizationAddressCity/State/ZIP CodePhone Number [facility] [place] [address] [address] [address] [place] [address] * ANTI HIV 1/2 [84894.0] (07/30/2023 11:33 AM CDT)ComponentValueRef RangeTest MethodAnalysis TimePerformed AtPathologist SignatureHIV-1/HIV-2 SCREEN Xso-OtkowhrjWgh-Jcfjzhwd12/06/2023 7:58 PM [facility] LABORATORYComment:HIV-1 p24 and HIV-1/HIV-2 Ab Not Detected.Specimen (Source) Anatomical Location / LateralityCollection Method / VolumeCollection Time Received TimeBloodBLOOD SPECIMEN / UnknownVenipuncture / Pzjscxu4607/30/2023 11:33 AM CDT07/30/2023 11:33 AM CDT Narrative Authorizing ProviderResult TypeResult StatusMackenkaya Kathy Horne [facility] Final ResultPerforming OrganizationAddressCity/State/ZIP CodePhone Number [facility] [address] [place] [address], from Last 3 Months or Most Recently Relevant to Health Maintenance Insurance Care Teams Team MemberRelationshipSpecialtyStart DateEnd Date Pcp, No PCP - General04/30/21
[2025-11-18 13:52] VITALS: BP 134/82; PULSE 77; RESP 16; TEMP 37.3; O2SAT 100; BMI 35.6
[2025-11-18 14:38] LABS: Strep A DNA Probe* NOT DETECTED (Not Detectd)
[2025-11-18 14:51] LABS: PCR FLU A Negative PCR FLU A (Negative); PCR FLU B Negative PCR FLU B (Negative); PCR RSV Negative PCR RSV (Negative); SARS PCR* Negative SARS-CoV-2 (Negative)
--- NOTE | 2025-11-18 15:09 | ED_ITS ---
HPI - General Adult General Time Seen by Provider: 15:09 Date Seen: 11/18/25 Chief complaint: Shortness of Breath/Dyspnea Stated complaint: Chest pain, short of breath Time Seen by Provider: 11/18/25 15:08 Source: patient and RN notes reviewed Mode of arrival: ambulatory Limitations: no limitations History of Present Illness HPI narrative: This 24-year-old male is referred from outside urgent care for 2 days the symptoms of chest discomfort that is not pleuritic. He has had a sore throat, can eat and drink just fine however. He has not noted fevers. Today he developed a little cough. His girlfriend just tested positive for COVID. He does not have any history of asthma, no current smoking but has had a history remotely of smoking and then the vaping. There is no pleuritic change, pain is always there, a burning in the central mid chest. He notes no associated GI symptoms such as nausea vomiting diarrhea or abdominal pain. He does have epilepsy, is on Lamictal. Outside EKG reviewed: Normal sinus rhythm, 70 beats per minute. No evidence of any active ischemia or infarct. Isolated flipped T-wave lead [address] segment change. Related Data Home Medications ?Medication ?Instructions ?Recorded ?Confirmed lamotrigine 100 mg tablet 100 mg PO BID 05/21/2311/18 lamotrigine 150 mg tablet 150 mg PO BID 05/21/2311/18 Allergies Allergy/AdvReac Type Severity Reaction Status Date / Time cefprozil (From Cefzil) Allergy Verified 11/18/25 13:54 Review of Systems Status of ROS: Reports: 6 or more systems reviewed and unremarkable except as noted in History and below [facility] Medical History (Updated 11/18/25 @ 16:50 by Jessica Boss MD) Epilepsy ?G40.909 - Epilepsy, unspecified, not intractable, without status epilepticus (ICD-10) Surgical History No significant past surgical history Social History Smoking Status: Former smoker What tobacco products do you use: cigarettes Smoking packs per day: 0 Smoking cigarettes per day: 0.0 Years smoked: 2 Smoking pack-years: 0.00 Smoking quit date/years: <= 15 years ago Do you use any of these nicotine containing products: E-Cigarettes and Vaping Products Second hand tobacco smoke exposure: No How often do you have a drink containing alcohol: 2-4 times a month How many standard drinks containing alcohol do you have on a typical day: 1 or 2 How often do you have six or more drinks on one occasion: Less than monthly AUDIT-C Alcohol total score: 3 Non-prescribed substance use: marijuana (any form) Non-prescribed substance use details: 1x month service: No Exam Const: Vital Signs, click to edit/add: Vital Signs - 24 hr 11/18/25 13:52 11/18/25 16:18 Temperature 99.2 F Pulse Rate 68 Pulse Rate [Pulse Oximeter] 77 Respiratory Rate 16 16 Blood Pressure 130/77 Blood Pressure [Ri ght Upper Arm] 134/82 Pulse Oximetry 100 96 Oxygen Delivery Me thod Room Air Room Air This 30-year-old male who is ambulatory into the ED of his own accord. He is sing exam room 2, is alert, interactive, no apparent distress. Pupils equal round reactive, sclera clear, TMs with some scarring but no evidence of any active infection showing normal translucency otherwise. Canals normal. Anterior nares normal. Oropharynx with normal echo succumbed no exudates erythema, no tonsillar enlargement or tonsillar changes, oral mucosa dentition normal. Neck without any adenopathy. Lungs are clear, good air entry, no wheezing crackles, no tachypnea, no accessory muscle use. CV regular rate and rhythm, no murmur, normal S1-S2. Abdomen is soft, nontender, nondistended, no organomegaly. Outside EKG as above reviewed and normal. Documenting provider has reviewed patient's vital signs: yes Course Course ED Course: Reviewed with this patient that his strep in triple viral swab collected in triage are normal. I do suspect that his COVID could be false negative given that he lives with his girlfriend and she is positive, he is symptomatic. Will look at a portable chest x-ray. His EKG shortly is not indicative of any ischemia or pericarditis. Will look at a troponin and consider myocarditis. Also look at some basic labs. Is likely that he has a viral illness. Need to look on Lyman dad to see if he might be a candidate for Paxlovid as a highly suspect he has a false negative test. Reevaluation(s) Time of Reevaluation #1: 16:43 Reevaluation #1: Have reviewed normal chest x-ray in completely normal labs. I do suspect that he might have COVID-19 given his girlfriend's positive test. Did look up the Lyman drug interaction clerical car checker. Lamictal can be potentially decreased in dosing if given with Paxlovid and other medications recommended. I have discussed with him that he might be a candidate for remdesivir but I actually do not even know anywhere where it is being done, we do not have it here. I do not know if his insurance will cover it either as we do have a negative COVID test which I suspect is false negative on him. He has had COVID 3 other times and done well, will have him discharged to home and monitor his symptoms. Vital Signs Vital signs: Initial Vital Signs Temperature 99.2 F 11/18/25 13:52 Temperature Source Temporal Artery Scan 11/18/25 13:52 Pulse Rate 77 11/18/25 13:52 Pulse Rhythm Regular 11/18/25 13:52 Pulse Strength 3+ Normal 11/18/25 13:52 Respiratory Rate 16 11/18/25 13:52 Blood Pressure 134/82 11/18/25 13:52 Blood Pressure Mean 99 11/18/25 13:52 Blood Pressure Position Sitting 11/18/25 13:52 Pulse Oximetry 100 11/18/25 13:52 Oxygen Delivery Method Room Air 11/18/25 13:52 Vital Signs Temperature 99.2 F 11/18/25 13:52 Pulse Rate 77 11/18/25 13:52 Respiratory Rate 16 11/18/25 13:52 Blood Pressure 134/82 11/18/25 13:52 Pulse Oximetry 100 11/18/25 13:52 Oxygen Delivery Method Room Air 11/18/25 13:52 Temperature 99.2 F 11/18/25 13:52 Pulse Rate 68 11/18/25 16:18 Respiratory Rate 16 11/18/25 16:18 Blood Pressure 130/77 11/18/25 16:18 Pulse Oximetry 96 11/18/25 16:18 Oxygen Delivery Method Room Air 11/18/25 16:18 Medical Decision Making Lab Data Lab results reviewed: Yes I reviewed the patient's lab results Labs: Lab Results 11/18/25 11/18/25 Range/Units 13:58 15:30 WBC 7.03 (4.50-11.00) K/uL RBC 4.93 (4.30-5.90) m/uL Hgb 14.9 (13.5-17.5) gm/dL Hct 43.2 (37.0-53.0) % MCV 88 (80-100) fL MCH 30 (26-34) pg MCHC 35 (32-36) gm/dL RDW Coeff of Brayden 11.6 (11.5-15.5) % Plt Count 235 (140-440) K/uL Neut % (Auto) 67.4 (42.0-72.0) % Lymph % (Auto) 22.9 (20-44) % Payne % (Auto) 6.5 (0.0-11.0) % Eos % (Auto) 2.0 (0.0-7.0) % Baso % (Auto) 0.6 (0.0-3.0) % Neut # (Auto) 4.74 (1.7-7.0) K/uL Lymph # (Auto) 1.61 (0.90-2.90) K/uL Payne # (Auto) 0.50 (0.00-0.90) K/UL Eos # (Auto) 0.14 (0.00-0.50) K/uL Baso # (Auto) 0.04 (0.00-0.30) K/uL Abs Immat Gran (auto) 0.04 (0.00-0.30) K/uL Imm/Tot Granulo (auto) 0.6 % D-Dimer Quant (PE/DVT) < 0.27 (0.00-0.50) ug/ml VBG pH 7.382 (7.32-7.43) VBG pCO2 47 (40-50) mmHG VBG pO2 30.5 (25-47) mmHG VBG HCO3 28 (21-28) mmol/L Sodium 138 (135-149) mmol/L Potassium 4.3 (3.6-5.1) mmol/L Chloride 102 (96-114) mmol/L Carbon Dioxide 27 (20-32) mmol/L Anion Gap 9 (7-15) mEq/L BUN 15 (5-24) mg/dL Creatinine 1.0 (0.5-1.5) mg/dL Estimated Creat Clear 106.40 Estimated GFR 105 ml/min Glucose 81 (60-115) mg/dL Calcium 9.9 (8.4-10.6) mg/dL Troponin I < 0.01 (0.01-0.04) ng/mL C-Reactive Protein < 0.5 L (0.5-1.0) mg/dL NT-Pro-B Natriuret Pep < 20 (See Note) pg/mL SARS-CoV-2 (PCR) Negative SARS-CoV-2 (Negative) Influenza Type A (PCR) Negative PCR FLU A (Negative) Influenza Type B (PCR) Negative PCR FLU B (Negative) RSV (PCR) Negative PCR RSV (Negative) Group A Strep DNA NOT DETECTED (Not Detectd) Imaging Data Chest x-ray: Attestation: I have reviewed the pertinent imaging results. My impression: Did visualize patient's chest x-ray, see no acute pathology on my preliminary r eview. Radiologist's impression: Patient: FRANNIE GASPAR Facility:?[facility] Patient ID:?[id number] Site Patient ID:?[id number]. Site :?1997 Study:?XRay-Chest 1V-11/18/2025 3:48:50 PM Ordering Physician:Lia Lopez Final Report: INDICATION: Chest pain. TECHNIQUE: Chest 1 views. COMPARISON: None. FINDINGS: Cardiovasculature and mediastinum: Heart size is normal. Unremarkable mediastinum. Lungs and pleural spaces: Lungs are clear. No pneumothorax or pleural effusion. Bones and soft tissues: No significant findings. IMPRESSION: No acute findings. Dictated by Sharmila Persaud MD @ 11/18/2025 3:53:58 PM (Electronic Signature) Discharge Plan Discharge Clinical Impression: Viral upper respiratory illness Patient Disposition: Home, Self-Care Condition: Stable Instructions: Upper Respiratory Infection (ED), COVID-19 (Coronavirus Disease 2019) (ED) Additional Instructions: Your labs and workup here are certainly reassuring. There is no evidence of any ischemic heart disease, no myocarditis, no pericarditis. Your chest x-ray is negative, no pneumonia. You did test negative for COVID but do wonder if this may be a false negative given your positive exposure. Recommend at rest, plenty of fluids, treatment with guxl-tfd-kfjgpbj medicines that you typically would use for upper respiratory infection. If you are not improving over the next week, are worsening at any point or have further concerns, please seek re- evaluation. Activity Level: Activity as Tolerated Prescriptions: No Action lamotrigine 150 mg tablet 150 mg PO BID lamotrigine 100 mg tablet 100 mg PO BID Follow Up/Referrals: Provider,Not a Local [Primary Care Provider, Family Practice] Stand Alone Forms: [employer] Info Instructions Procedures ABG Interpretation ABG Results: 11/18/25 15:30 VBG pH 7.382 VBG pCO2 47 VBG pO2 30.5 VBG HCO3 28
--- NOTE | 2025-11-18 15:26 | CRLHL7_ITS ---
For Patients: As a result of the Century Cures Act, medical imaging exams and procedure reports are released immediately into your electronic medical record. You may view this report before your referring provider. If you have questions, please contact your health care provider. INDICATION: Chest pain. TECHNIQUE: Chest 1 views. COMPARISON: None. FINDINGS: Cardiovasculature and mediastinum: Heart size is normal. Unremarkable mediastinum. Lungs and pleural spaces: Lungs are clear. No pneumothorax or pleural effusion. Bones and soft tissues: No significant findings. IMPRESSION: No acute findings. Dictated by Sharmila Persaud MD @ 11/18/2025 3:53:58 PM (Electronically Signed)
[2025-11-18 15:40] LABS: HCO3 VBG 28 mmol/L (21-28); PCO2 VBG 47 mmHG (40-50); PO2 VBG 30.5 mmHG (25-47); pH VBG 7.382 (7.32-7.43)
[2025-11-18 15:42] LABS: Hematocrit* 43.2 % (37.0-53.0); Hemoglobin* 14.9 gm/dL (13.5-17.5); Immature Granulocytes Abs Auto 0.04 K/uL (0.00-0.30); Immature Granulocytes Pct Auto 0.6 %; Lymphocytes Absolute Auto 1.61 K/uL (0.90-2.90); Mean Corpuscular HGB Conc 35 gm/dL (32-36); Mean Corpuscular Hemoglobin 30 pg (26-34); Mean Corpuscular Volume 88 fL (80-100); RDW Coefficient of Variation % 11.6 % (11.5-15.5); Red Blood Count* 4.93 m/uL (4.30-5.90); White Blood Count* 7.03 K/uL (4.50-11.00)
[2025-11-18 15:48] LABS: Slide Review Reflex No
[2025-11-18 16:02] LABS: Chloride* 102 mmol/L (96-114); Potassium* 4.3 mmol/L (3.6-5.1); Sodium* 138 mmol/L (135-149)
[2025-11-18 16:04] LABS: Blood Urea Nitrogen* 15 mg/dL (5-24); Creatinine* 1.0 mg/dL (0.5-1.5); Est. Creatinine Clearance* 106.40; Estimated Glomerular Filt Rate 105 ml/min
[2025-11-18 16:05] LABS: Anion Gap 9 mEq/L (7-15); Calcium* 9.9 mg/dL (8.4-10.6); Carbon Dioxide* 27 mmol/L (20-32); Glucose* 81 mg/dL (60-115)
[2025-11-18 16:16] LABS: NT Pro B Type NatriureticPept* < 20 pg/mL (See Note)
[2025-11-18 16:18] VITALS: BP 130/77; PULSE 68; RESP 16; O2SAT 96
[2025-11-18 16:23] LABS: D Dimer Quantitative* < 0.27 ug/ml (0.00-0.50)
== END 2025-11-18 17:02 | disposition home or self-care (01) ==
PROVIDERS: Emergency Provider Family Medicine
DX: J06.9 Acute upper respiratory infection, unspecified (principal)
CPT/HCPCS: 36415; 71045; 80048; 82803; 83880; 84484; 85025; 85379; 86140; 87631; 87651; 99283; 99284